=== PATIENT | male | born 1960 | race Caucasian/White ===

== ENCOUNTER → 2017-11-12 06:32 | Outpatient (CLI) | payer OTHER, SELFPAY ==
[2017-11-12 08:54] LABS: AST(SGOT) 22 U/L (15-37); Alanine Aminotransfer ALT/SGPT 25 U/L (16-61); Albumin, Serum 3.9 g/dL (3.2-5.0); Alkaline Phosphatase 108 U/L (45-117); Cholesterol 150 mg/dL (200); Globulin 3.8 g/dL (2.2-4.2); High Density Lipoprotein 51 mg/dL; Protein, Total 7.7 g/dL (6.4-8.2); Triglycerides 86 mg/dL; Very Low Density Lipoprotein 17 mg/dL (5-40)
== END ==
PROVIDERS: Family Provider Family Medicine; PCP Family Medicine; Visit Provider Internal Medicine Interventional Cardiology
DX: I25.10 Atherosclerotic heart disease of native coronary artery without angina pectoris (principal); E78.5 Hyperlipidemia, unspecified; Z72.0 Tobacco use
CPT/HCPCS: 36415; 80061; 80076

== ENCOUNTER → 2018-04-09 06:27 | Outpatient (CLI) | payer OTHER, SELFPAY ==
--- NOTE | 2018-04-09 06:42 | MRI_ITS ---
STUDY: MRI LUMBAR SPINE WITH AND WITHOUT CONTRAST REASON FOR EXAM: Male, 57 years old. Lower back pain TECHNIQUE: Standardized fat and water weighted pulse sequences were obtained in the sagittal and axial planes. 10 ml of Gadavist contrast material was administered for the contrast portion of the examination. # of Images: 178 COMPARISON: None FINDINGS: T12-L1: Normal endplates. Normal disc height, hydration and morphology. Normal bilateral facet joints. Normal central canal and bilateral lateral recesses. Normal bilateral intervertebral neural foramina. Normal lumbar lordosis. There is no substantial scoliosis. Normal conus medullaris that terminates at the L1-2: Endplate spondylosis. Decreased disc height and small circumferential disc bulge. Degenerative changes of the bilateral facet joints. Mild narrowing of the central canal and moderate narrowing of the bilateral intervertebral neural foramina. L2-3: Endplate spondylosis. Decreased disc height and small circumferential disc bulge. Degenerative changes of the bilateral facet joints. Mild narrowing of the central canal and moderate narrowing of the bilateral intervertebral neural foramina. L3-4: Endplate spondylosis. Decreased disc height and moderate circumferential disc bulge. Bilateral laminectomy Superimposed large midline and para midline disc herniation is probably extruded impinging. Degenerative changes of the bilateral facet joints. Severe narrowing of the bilateral intervertebral neural foramina. L4-5: Endplate spondylosis. Decreased disc height and moderate circumferential disc bulge. Bilateral laminectomy Degenerative changes of the bilateral facet joints. Severe narrowing of the bilateral intervertebral neural foramina. L5-S1: Endplate spondylosis. Decreased disc height and small circumferential disc bulge. Degenerative changes of the bilateral facet joints. Mild narrowing of the central canal and bilateral intervertebral neural foramina. Normal visualized sacral ala. Normal visualized paraspinous soft tissue structures. MRI/Spine Lumbar W/WO Contrast IMPRESSION: Multilevel degenerative changes, as described above. Electronically Signed: Iraida Holland MD at 12:11 EDT Tel , Service support ,
== END ==
PROVIDERS: Family Provider Family Medicine; PCP Family Medicine; Referring Provider Nurse Practitioner Acute Care; Visit Provider Nurse Practitioner Acute Care
DX: M48.061 Spinal stenosis, lumbar region without neurogenic claudication (principal)
CPT/HCPCS: 72158; A9585

== ENCOUNTER → 2018-04-22 09:24 | Outpatient (CLI) | payer OTHER, SELFPAY ==
--- NOTE | 2018-04-22 09:24 | COLBX_PTH ---
PATIENT: DARLING BENNETT LOC: GEN U#:[id number] AGE/SX: 64/M ROOM: RE04/22/[address]: Dr. Otoniel Patel MD : 1960 BED: DIS: SPEC #: [id number] RECD: 04/22/18 15:34 STATUS: BERNARD JESS #: [id number] SRIDEVI: 04/22/18 09:[address]: Otoniel Patel DEPT: SURGICAL PATHOLOGY RECD BY: Nathaly Clarke ENTERED: 04/23/18 11:35 SP TYPE: COLON BX OTHR DR: Dr. Hector Luevano MD [facility] Tissues: Sigmoid colon biopsy Procedures: Surgery Specimen Level IV HEADER OPERATION: Colonoscopy with biopsy PRE-OP DIAGNOSIS: Screening, family history TISSUE SUBMITTED: Biopsy polyp x2, distal sigmoid, rule out adenoma MICROSCOPIC DIAGNOSIS Distal sigmoid polyps x2, biopsy: Fragments of hyperplastic polyp. SJ:krista 11/5/18 MICROSCOPIC DESCRIPTION Slides are reviewed. GROSS DESCRIPTION Received in fixative is one container labeled with the patient's name and designated distal sigmoid polyp biopsy. The specimen consists of multiple irregular fragments of light ga soft tissue that in aggregate measure 0.5 x 0.3 x 0.1 cm. The specimen is totally submitted in one cassette. / AM:krista 04/23/18 TC:1 CPT: 43408
== END ==
PROVIDERS: Family Provider Family Medicine; PCP Family Medicine; Referring Provider Internal Medicine Gastroenterology; Visit Provider Internal Medicine Gastroenterology
DX: Z13.9 Encounter for screening, unspecified (principal); Z84.89 Family history of other specified conditions
CPT/HCPCS: 88305

== ENCOUNTER → 2018-12-02 06:13 | Outpatient (CLI) | payer OTHER, SELFPAY ==
[2018-12-02 07:54] LABS: AST(SGOT) 20 U/L (15-37); Alanine Aminotransfer ALT/SGPT 22 U/L (16-61); Albumin, Serum 3.8 g/dL (3.2-5.0); Alkaline Phosphatase 110 U/L (45-117); Anion Gap 3 (5-15); BUN 12 mg/dL (7-18); BUN/Creat Ratio 13.4 RATIO (10-20); Calcium,Total 9.2 mg/dL (8.5-10.1); Chloride 107 mmol/L (98-107); Cholesterol 155 mg/dL (200); Creatinine, Serum 0.89 mg/dL (0.70-1.30); EST Glomerular Filtration Rate 92 mL/min (>60); Est Glom Filt Rate - Afr Amer 111 mL/min (>60); Globulin 3.8 g/dL (2.2-4.2); Glucose 96 mg/dL (74-106); High Density Lipoprotein 57 mg/dL; PSA,Total- Diagnostic 1.27 ng/mL (0.0-4.0); Potassium 3.7 mmol/L (3.5-5.1); Protein, Total 7.6 g/dL (6.4-8.2); Sodium Level 137 mmol/L (136-145); Triglycerides 74 mg/dL; Very Low Density Lipoprotein 15 mg/dL (5-40)
[2018-12-03 11:14] LABS: Hep C Antibodies <0.1 s/co ratio (0.0-0.9)
== END ==
PROVIDERS: Family Provider Family Medicine; PCP Family Medicine; Referring Provider Family Medicine; Visit Provider Family Medicine
DX: I25.10 Atherosclerotic heart disease of native coronary artery without angina pectoris (principal); N40.0 Benign prostatic hyperplasia without lower urinary tract symptoms; Z11.59 Encounter for screening for other viral diseases
CPT/HCPCS: 36415; 80053; 80061; 84153; 86803

== ENCOUNTER 2019-03-07 16:04 | Emergency (ER) | payer OTHER, SELFPAY ==
[2019-03-07 16:05] VITALS: BP 126/63; PULSE 70; RESP 16; TEMP 36.7; O2SAT 95; BMI 29.2
--- NOTE | 2019-03-07 16:40 | ED.VISSUMM ---
- ER Visit Summary Date of Service: 03/07/19 Chief Complaint: [Scalp laceration] History of Present Illness: The patient is a 58 M [presents to the emergency department with a head injury and scalp laceration that occurred prior to arrival in the emergency department. Patient states that he stood up and hit his head on a roll bar of a skid feeder loader causing a laceration to the top of his head. He denies any loss of consciousness. He denies any neck pain. Patient is on Plavix for history of cardiac stent. Patient denies any significant headache. He said no vomiting. He denies any visual changes. He is unsure of his last tetanus shot.] Physical Examination: [HEENT-PERRLA, EOMI. Cranial nerves II through XII grossly intact. TMs clear. Mucous membranes moist. No adenopathy. Patient has a 4 cm laceration horizontal across the vertex of the head. No bony step-offs. Cardiovascular-regular rate and rhythm without murmur or ectopy Lungs-clear to auscultation, chest wall stable without crepitus or subcu emphysema Abdomen-normoactive bowel sounds, soft, nontender, no rebound or rigidity, no peritoneal signs. Extremities-intact ?4, normal range of motion, normal pulses, atraumatic] Test Results: [None indicated] Emergency Department Course and Treatment: [Laceration repair-wound sterilely draped and prepped. Wound cleansed with Shur-Clens and irrigated with copious saline. Using 1% lidocaine with epinephrine total of 3 cc used to anesthetize the area. The wound was inspected and the cut is barely through the dermis however does gape slightly. Wound cleansed with Shur-Clens and irrigated with copious saline. No foreign bodies noted within the wound. Using 4-0 nylon a total of 3 single interrupted sutures placed with good wound edge approximation. Patient tired procedure well.] Treatment Plan: [Patient to follow-up with primary care physician for suture removal in 10 days. Patient advised to return if worsening pain, fever, redness, swelling, purulent drainage, or conditions worsen anyway.] Disposition: [Discharged home in stable condition.] Impression: [Closed head injury Scalp laceration 4 cm-simple repair] This note was generated with [employer] software. It may contain incorrect words, spelling, and punctuation that were not noted in review of the chart prior to signing ED Disposition - Plan for ED Patient: Referrals: Hector Luevano MD [Primary Care Provider] -
--- NOTE | 2019-03-07 16:43 | ED.DEP ---
ED Disposition - Plan for ED Patient: Instructions: LACERATION, Scalp Referrals: Hector Luevano MD [Primary Care Provider] - 10 Day for suture removal
[2019-03-07] MEDS: Diphth,Pertuss(Acell),Tet Vac 0.5 ML Vial IM (16:54)
== END 2019-03-07 17:07 | disposition home or self-care (01) ==
LOC: ED 16:21
PROVIDERS: Emergency Provider Emergency Medicine; Family Provider Family Medicine; PCP Family Medicine
DX: S01.01XA Laceration without foreign body of scalp, initial encounter (principal); W22.8XXA Striking against or struck by other objects, initial encounter; Y93.9 Activity, unspecified; Y92.9 Unspecified place or not applicable; Y99.9 Unspecified external cause status; I25.10 Atherosclerotic heart disease of native coronary artery without angina pectoris; F17.290 Nicotine dependence, other tobacco product, uncomplicated; Z79.82 Long term (current) use of aspirin; Z79.02 Long term (current) use of antithrombotics/antiplatelets; Z79.899 Other long term (current) drug therapy; Z95.5 Presence of coronary angioplasty implant and graft
CPT/HCPCS: 12002; 90471; 90715; 99283

== ENCOUNTER → 2019-09-20 15:35 | Outpatient (CLI) | payer OTHER, SELFPAY ==
[2019-09-20 17:43] LABS: Absolute Lymphocyte Count 3.13 X10^3/uL (0.83-4.51); Absolute Neutrophil Count 4.6 X10^3/uL (2.0-7.7); Basophil# 0.02 X10^3/uL; Basophil% 0.2 % (0-1); Eosinophils% 1.2 % (0-5); Hematocrit 49.8 % (40-54); Hemoglobin 16.2 g/dL (13.0-16.5); Lymphocyte # 3.13 X10^3/ul (4.0); Lymphocyte % 36.4 % (19-41); Mean Corp Hgb Conc 32.5 g/dL (32-36); Mean Corpuscular Hgb 30.4 pg (27.0-32.0); Mean Corpuscular Volume 93.4 fL (80-94); Mean Platelet Vol. 9.2 fl (6.2-12.0); Monocyte# 0.71 X10^3/uL; Monocyte% 8.3 % (0-10); NRBC Flagged by Analyzer 0 % (0-5); Neutrophil # 4.63 X10^3/uL (2.7-7.7); Neutrophil % 53.8 % (47-70); Platelet Count 312 K/mm3 (150-450); RBC Distribution Width CV 13.8 % (11.6-14.6); RBC Distribution Width SD 47.8 fl (35.1-43.9); Red Blood Count 5.33 M/mm3 (4.6-6.2); White Blood Count 8.6 K/mm3 (4.4-11.0)
[2019-09-20 18:14] LABS: ALB/GLOB Ratio 1.1 RATIO (0.9-2.4); AST(SGOT) 20 U/L (15-37); Alanine Aminotransfer ALT/SGPT 23 U/L (16-61); Albumin, Serum 3.9 g/dL (3.2-5.0); Alkaline Phosphatase 96 U/L (45-117); Anion Gap 5 (5-15); BUN 12 mg/dL (7-18); BUN/Creat Ratio 12.9 RATIO (10-20); Calcium,Total 9.5 mg/dL (8.5-10.1); Chloride 109 mmol/L (98-107); Cholesterol 144 mg/dL (200); Creatinine, Serum 0.93 mg/dL (0.70-1.30); EST Glomerular Filtration Rate 88 mL/min (>60); Est Glom Filt Rate - Afr Amer 106 mL/min (>60); Globulin 3.6 g/dL (2.2-4.2); Glucose 93 mg/dL (74-106); High Density Lipoprotein 54 mg/dL; Potassium 3.9 mmol/L (3.5-5.1); Protein, Total 7.5 g/dL (6.4-8.2); Sodium Level 142 mmol/L (136-145); Triglycerides 97 mg/dL; Very Low Density Lipoprotein 19 mg/dL (5-40)
== END ==
PROVIDERS: PCP Family Medicine; Referring Provider Family Medicine; Visit Provider Family Medicine
DX: I25.10 Atherosclerotic heart disease of native coronary artery without angina pectoris (principal)
CPT/HCPCS: 36415; 80053; 80061; 85025

== ENCOUNTER → 2020-07-19 05:54 | Outpatient (CLI) | payer OTHER, SELFPAY ==
[2020-07-19 07:38] LABS: Cholesterol 164 mg/dL (200); High Density Lipoprotein 56 mg/dL; Triglycerides 64 mg/dL; Very Low Density Lipoprotein 13 mg/dL (5-40)
== END ==
PROVIDERS: PCP Family Medicine; Referring Provider Internal Medicine Interventional Cardiology; Visit Provider Internal Medicine Interventional Cardiology
DX: I25.10 Atherosclerotic heart disease of native coronary artery without angina pectoris (principal); E78.5 Hyperlipidemia, unspecified; Z72.0 Tobacco use
CPT/HCPCS: 36415; 80061

== ENCOUNTER 2020-10-13 00:08 | Emergency (ER) | payer OTHER, SELFPAY ==
[2020-10-13 00:12] VITALS: BP 142/77; PULSE 63; RESP 14; TEMP 36.1; O2SAT 98; BMI 26.9
--- NOTE | 2020-10-13 00:16 | EKG12_ITS ---
Test Reason : CP Blood Pressure : / mmHG Vent. Rate : 060 BPM Atrial Rate : 060 BPM P-R Int : 158 ms QRS Dur : 096 ms QT Int : 434 ms P-R-T Axes : 067 088 064 degrees QTc Int : 434 ms Normal sinus rhythm Normal ECG Confirmed by TAJ CASTAÑEDA, SAADIA ([id number]), sports editor PENNY MILES ([id number]) on 10/15/2020 9:52:32 AM Referred By: BOY Confirmed By:UVALDO VANG MD
--- NOTE | 2020-10-13 00:16 | RAD_ITS ---
STUDY: X-RAY CHEST REASON FOR EXAM: Male, 60 years old. chest pain TECHNIQUE: Single AP portable view of the chest. COMPARISON: 03/23/17 FINDINGS: The lungs are clear and expanded. There is no demonstrated pleural abnormality. Normal size heart. Normal mediastinum and luis carlos. Normal visualized pulmonary arteries. Normal visualized aortic arch and descending thoracic aorta. Normal visualized thoracic spine. Normal visualized ribs, clavicles, and shoulders. There is no demonstrated abnormality of the visualized soft tissue structures of the upper abdomen. RAD/Chest 1 View (Portable) IMPRESSION: Normal x-ray examination of the chest. Electronically Signed: Alan Mccurdy DO at 0:46 EDT Tel , Service support ,
--- NOTE | 2020-10-13 00:17 | ED.DCSUM_ITS ---
- ER Visit Summary Date of Service: 10/13/20 Chief Complaint: Chest pain History of Present Illness: The patient is a 60 M who presents with chest pain. It started 1 hour ago. It is a dull pressure of the start on the right side of his chest and now centered in the middle part of his chest. Nothing makes it better or worse. Denies nausea, diaphoresis or dyspnea. He did not take anything for this at home. He is on Plavix for history of coronary artery disease. His last testing was in 2015 when he did have 1 stent placed. 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 Physical Examination: Vital signs reviewed. HEENT exam unremarkable. Heart is regular rate and rhythm without murmurs. Lungs are clear to auscultation. Abdomen is soft and nontender. Extremities reveal no edema. Peripheral pulses are equal. Skin exam normal. Neurologic exam normal. Test Results: EKG is sinus rhythm with a rate of 60. No ST changes. Chest x- ray unremarkable. Labs are normal. Troponin normal. Repeat 3-hour troponin is also normal Emergency Department Course and Treatment: Patient received aspirin. His pain resolved while he was here in the emergency department. His heart score is 4. However, he does not want to be admitted to the hospital. I repeated a 3-hour troponin and is still negative. Patient was still symptom-free. Patient would like to be discharged home. He is going to call his cold storage worker today for a follow-up appointment. Treatment Plan: [] Disposition: Discharge Impression: Chest pain This note was generated with [employer] dictation software. It may contain incorrect words, spelling, and punctuation that were not noted in review of the chart prior to signing ED Disposition - Plan for ED Patient: Disposition: Home or Assisted Living Instructions: ED Chest Pain, Uncertain Cause Referrals: Hector Luevano MD [Primary Care Provider] -
[2020-10-13 00:34] LABS: Absolute Neutrophil Count 4.7 X10^3/uL (2.0-7.7); Basophil# 0.03 X10^3/uL; Basophil% 0.3 % (0-1); Eosinophil# 0.24 X10^3/uL; Eosinophils% 2.4 % (0-5); Hematocrit 48.1 % (40-54); Hemoglobin 15.5 g/dL (13.0-16.5); Lymphocyte % 40.9 % (19-41); Mean Corp Hgb Conc 32.2 g/dL (32-36); Mean Corpuscular Hgb 30.6 pg (27.0-32.0); Mean Corpuscular Volume 94.9 fL (80-94); Mean Platelet Vol. 9.1 fl (6.2-12.0); Monocyte# 0.96 X10^3/uL; Monocyte% 9.6 % (0-10); NRBC Flagged by Analyzer 0 % (0-5); Neutrophil # 4.67 X10^3/uL (2.7-7.7); Neutrophil % 46.5 % (47-70); Platelet Count 338 K/mm3 (150-450); RBC Distribution Width CV 13.7 % (11.6-14.6); RBC Distribution Width SD 47.8 fl (35.1-43.9); Red Blood Count 5.07 M/mm3 (4.6-6.2)
[2020-10-13 00:47] LABS: Anion Gap 5 (5-15); BUN 16 mg/dL (7-18); BUN/Creat Ratio 18.1 RATIO (10-20); Calcium,Total 9.4 mg/dL (8.5-10.1); Chloride 107 mmol/L (98-107); Creatinine, Serum 0.88 mg/dL (0.70-1.30); EST Glomerular Filtration Rate 93 mL/min (>60); Est Glom Filt Rate - Afr Amer 113 mL/min (>60); Estimated Creatinine Clearance 104.02 ml/min; Glucose 104 mg/dL (74-106); Potassium 3.9 mmol/L (3.5-5.1); Sodium Level 142 mmol/L (136-145)
[2020-10-13] MEDS: Aspirin 81 MG TAB.CHEW 324 MG PO (01:08)
[2020-10-13 01:09] VITALS: BP 145/73; PULSE 59; RESP 16; O2SAT 97
--- NOTE | 2020-10-13 01:09 | ED.RN ---
patient states he does not have cp now and does not want to take nitro at this time
[2020-10-13 01:40] VITALS: BP 131/70; PULSE 59; RESP 18; O2SAT 97
[2020-10-13 02:28] VITALS: BP 141/77; PULSE 58; RESP 16; O2SAT 98
[2020-10-13 03:02] VITALS: BP 139/73; PULSE 57; RESP 19; O2SAT 99
[2020-10-13 03:32] VITALS: BP 137/73; PULSE 57; RESP 12; O2SAT 98
== END 2020-10-13 03:33 | disposition home or self-care (01) ==
PROVIDERS: Emergency Provider Emergency Medicine; PCP Family Medicine
DX: R07.9 Chest pain, unspecified (principal); I25.10 Atherosclerotic heart disease of native coronary artery without angina pectoris; Z72.0 Tobacco use; Z79.02 Long term (current) use of antithrombotics/antiplatelets; Z79.899 Other long term (current) drug therapy; Z95.5 Presence of coronary angioplasty implant and graft
CPT/HCPCS: 71045; 80048; 84484; 85025; 93005; 99285; A4216

== ENCOUNTER → 2020-10-30 06:58 | Outpatient (CLI) | payer OTHER, SELFPAY ==
[2020-10-13 00:12] VITALS: BMI 26.9
[2020-10-30 09:07] LABS: AST(SGOT) 20 U/L (15-37); Alanine Aminotransfer ALT/SGPT 26 U/L (16-61); Albumin, Serum 3.5 g/dL (3.2-5.0); Alkaline Phosphatase 105 U/L (45-117); Bilirubin, Direct 0.21 mg/dL (0.00-0.30); Cholesterol 141 mg/dL (200); Globulin 3.6 g/dL (2.2-4.2); High Density Lipoprotein 66 mg/dL; Protein, Total 7.1 g/dL (6.4-8.2); Triglycerides 55 mg/dL; Very Low Density Lipoprotein 11 mg/dL (5-40)
== END ==
PROVIDERS: PCP Family Medicine
DX: I25.10 Atherosclerotic heart disease of native coronary artery without angina pectoris (principal); E78.5 Hyperlipidemia, unspecified
CPT/HCPCS: 36415; 80061; 80076

== ENCOUNTER → 2021-01-23 06:04 | Outpatient (CLI) | payer OTHER, SELFPAY ==
--- NOTE | 2021-01-23 10:03 | STRESSREP ---
Stress Test Report Date: 01-23-2021 Procedure: Exercise tolerance test/imaging study Indications: CAD; PCI Consent: Per the patient Procedure: The patient exercised on a Jose D protocol for 11-minute completing Stage III and 2 minutes of Stage IV achieving a peak heart rate of 125 bpm (79% predicted maximal heart rate) with a peak blood pressure 160/72 mmHg and a peak MET capacity of 13 METs. The baseline ECG demonstrated sinus bradycardia. The peak exercise ECG demonstrated somatic/motion artifact with no obvious ECG changes. There was a rare PAC/PVC during exercise and an isolated ventricular couplet during exercise. The functional capacity was considered good. There was no complaint of chest discomfort during exercise or recovery. The examination was discontinued secondary to dyspnea and leg discomfort. Impression: 1. Technically inadequate (percent predicted maximal heart rate less than 85%) exercise tolerance test 2. Peak exercise ECG with somatic/motion artifact with no obvious ECG change 3. There was a rare PAC/PVC during exercise and an isolated ventricular couplet during exercise 4. Nuclear images pending Myocardial perfusion imaging study: Technique: The patient was injected with 14.8 mCi of technetium 99m Cardiolite and subsequently rest SPECT Cardiolite nuclear imaging was obtained in the horizontal long, vertical long, and short axis views. The patient exercised on a Jose D protocol for 11-minute completing Stage III and 2 minutes of Stage IV achieving a peak heart rate of 125 bpm (79% predicted maximal heart rate) with a peak blood pressure 160/72 mmHg and a peak MET capacity of 13 METs. The patient was injected with 44.2 mCi of technetium 99m Cardiolite and subsequently stress SPECT Cardiolite nuclear imaging was obtained in the horizontal long, vertical long, and short axis views. A gated Cardiolite study at peak stress was obtained. Interpretation: Rest and stress SPECT Cardiolite nuclear imaging status post realignment, normalization, and attenuation correction, demonstrates demonstrate a small area of subtle diminished tracer uptake near the apical segments which appears to be more prominent at rest as opposed to stress. There is end systolic thickening and brightening. The gated Cardiolite study demonstrates myocardial thickening and inward wall motion. The reported LVEF is 69%. Impression: 1. Rest and stress SPECT Cardiolite nuclear imaging demonstrates a small area of subtle diminished tracer uptake near the apical segments which appears to be more prominent at rest as opposed to stress appearing compatible with shifting soft tissue attenuation/artifact and/or component of physiologic apical thinning with no myocardial perfusion changes considered diagnostic for associated stress-induced myocardial ischemia. 2. The gated Cardiolite study reports an LVEF of 69%. This note was generated with [employer] software. It may contain incorrect words, spelling, and punctuation that were not noted in checking the note before signing.
== END ==
PROVIDERS: PCP Family Medicine
DX: I25.10 Atherosclerotic heart disease of native coronary artery without angina pectoris (principal); E78.5 Hyperlipidemia, unspecified; Z72.0 Tobacco use
CPT/HCPCS: 78452; 93017; A9500; A4216

== ENCOUNTER 2021-07-27 07:39 | Outpatient (CLI) | payer BC, SELFPAY ==
[2021-07-27 08:30] LABS: Cholesterol 135 mg/dL (200); High Density Lipoprotein 59 mg/dL; PSA,Total - Annual Screen 1.59 ng/mL (0.00-4.00); Triglycerides 68 mg/dL; Very Low Density Lipoprotein 14 mg/dL (5-40)
== END 2021-07-27 23:59 | disposition home or self-care (01) ==
PROVIDERS: PCP Family Medicine; Visit Provider Internal Medicine Interventional Cardiology
DX: E78.5 Hyperlipidemia, unspecified (principal); I25.10 Atherosclerotic heart disease of native coronary artery without angina pectoris; Z72.0 Tobacco use
CPT/HCPCS: 36415; 80061; 84153; G0103

== ENCOUNTER 2022-04-30 23:22 | Emergency (ER) | payer BC, SELFPAY ==
[2022-04-30 23:23] VITALS: BP 156/102; PULSE 71; RESP 23; TEMP 36.8; O2SAT 100; BMI 30.8
--- NOTE | 2022-04-30 23:27 | EKG12_ITS ---
Test Reason : cp Blood Pressure : / mmHG Vent. Rate : 062 BPM Atrial Rate : 062 BPM P-R Int : 160 ms QRS Dur : 102 ms QT Int : 458 ms P-R-T Axes : 065 073 066 degrees QTc Int : 464 ms Normal sinus rhythm Normal ECG Confirmed by TAJ CASTAÑEDA, SAADIA ([id number]), digital editor PENNY MILES ([id number]) on 05/06/2022 9:33:16 A M Referred By: Iggy Confirmed By:UVALDO VANG MD
--- NOTE | 2022-04-30 23:33 | RAD_ITS ---
STUDY: X-RAY CHEST REASON FOR EXAM: Male, 61 years old. chest pain TECHNIQUE: Single AP portable view of the chest. COMPARISON: 10/13/2020. FINDINGS: The lungs are clear and expanded. There is no demonstrated pleural abnormality. Normal size heart. Normal mediastinum and luis carlos. Normal visualized pulmonary arteries. Normal visualized aortic arch and descending thoracic aorta. There are diffuse degenerative changes of the visualized thoracic spine. There is degenerative osteoarthritis of the bilateral shoulders. There is no demonstrated abnormality of the visualized soft tissue structures of the upper abdomen. RAD/Chest 1 View (Portable) IMPRESSION: No acute cardiopulmonary disease. Electronically Signed: Shaniqua Mims MD at 0:23 EST ,
[2022-04-30 23:36] LABS: Absolute Lymphocyte Count 3.87 X10^3/uL (0.83-4.51); Absolute Neutrophil Count 5.2 X10^3/uL (2.0-7.7); Basophil# 0.04 X10^3/uL; Basophil% 0.4 % (0-1); Eosinophil# 0.15 X10^3/uL; Eosinophils% 1.5 % (0-5); Hematocrit 44.5 % (40-54); Hemoglobin 15.1 g/dL (13.0-16.5); Lymphocyte # 3.87 X10^3/ul (0.83-4.51); Lymphocyte % 38.1 % (19-41); Mean Corp Hgb Conc 33.9 g/dL (32-36); Mean Corpuscular Hgb 30.9 pg (27.0-32.0); Mean Platelet Vol. 8.8 fl (6.2-12.0); Monocyte% 8.8 % (0-10); NRBC Flagged by Analyzer 0 % (0-5); Neutrophil % 51.1 % (47-70); Platelet Count 318 K/mm3 (150-450); RBC Distribution Width CV 12.7 % (11.6-14.6); RBC Distribution Width SD 41.8 fl (35.1-43.9); Red Blood Count 4.89 M/mm3 (4.6-6.2); White Blood Count 10.2 K/mm3 (4.4-11.0)
[2022-04-30 23:55] LABS: Anion Gap 4 (5-15); BUN 17 mg/dL (7-18); BUN/Creat Ratio 17.7 RATIO (10-20); Calcium,Total 9.2 mg/dL (8.5-10.1); Chloride 107 mmol/L (98-107); Creatinine, Serum 0.96 mg/dL (0.70-1.30); EST Glomerular Filtration Rate 84 mL/min (>60); Est Glom Filt Rate - Afr Amer 101 mL/min (>60); Estimated Creatinine Clearance 94.13 ml/min; Glucose 118 mg/dL (74-106); Potassium 3.6 mmol/L (3.5-5.1); Sodium Level 139 mmol/L (136-145); Troponin-I HS (w/2H Reflex) 10 pg/mL (3.0-78.0)
--- NOTE | 2022-05-01 00:08 | ED.VIS.CHEST ---
HPI History of Present Illness Chief Complaint: Chest Pain Narrative Narrative: 60-year-old male with history of CAD and cardiac stents presenting with chest pain. He states it started about 1030. He had eaten chicken nuggets and tater tots for dinner. He stated the chest pain started shortly after and radiated across his entire chest. He denies being lightheaded, dizzy, nauseous. He states that this type of food would not of usually caused him any symptoms. He states the chest pain lasted for about 45 minutes or so. He took 4 baby aspirin at home. Patient is on daily aspirin and Plavix. No history of DVT/PE. No fever, chills, cough. PFSH PFSH Home Medications clopidogrel 75 mg tablet 75 mg PO DAILY 02/26/17 [History Last Taken Unknown] multivitamin (Daily Multiple tablet) 1 ea PO DAILY 02/26/17 [History Last Taken Unknown] saw palmetto 160 mg capsule 160 mg PO DAILY 02/26/17 [History Last Taken Unknown] nitroglycerin 0.4 mg sublingual tablet 0.4 mg sublingual Q5M PRN CHEST PAIN 10/13/20 [History Last Taken Unknown] rosuvastatin 20 mg tablet 20 mg PO QHS 10/13/20 [History Last Taken Unknown] loratadine 10 mg tablet (Claritin) 10 mg PO DAILY 05/01/22 [History Last Taken Unknown] Allergy/AdvReac Type Severity Reaction Status Date / Time No Known Allergies Allergy Verified 10/13/20 00:11 Surgical History History of heart artery stent Social History Smoking Status: Former smoker ROS ROS ED Constitutional Constitutional ED: Denies chills or fever(s) Eyes Eyes: Denies blurry vision or change in vision ENT ENT ED: Denies rhinorrhea or sore throat Cardiovascular Cardiovascular: Reports chest pain Respiratory/Chest Respiratory/Chest: Denies cough or dyspnea Gastrointestinal Gastrointestinal: Denies abdominal pain or constipation Genitourinary Genitourinary ED: Denies dysuria or hematuria Musculoskeletal Musculoskeletal: Denies arthralgias or back pain Integumentary Denies abscess or Abrasions Neurologic Neurologic: Denies headache(s) or paresthesias Psychiatric Psychiatric: Denies anxiety or depression EXAM Physical Exam Const Vital Signs: 04/30/22 23:23 04/30/22 23:25 04/30/22 23:27 Temperature 98.2 F Temperature Source Temporal Pulse Rate 71 Respiratory Rate 23 H Respiratory Effort Normal Blood Pressure 156/102 H Blood Pressure Mean 120 Pulse Ox 100 Oxygen Delivery Method Room Air Room Air 05/01/22 00:28 05/01/22 01:00 05/01/22 02:00 Temperature Temperature Source Pulse Rate 59 L 59 L 58 L Respiratory Rate 16 15 13 Respiratory Effort Blood Pressure 126/74 H 133/72 H 144/79 H Blood Pressure Mean 91 92 100 Pulse Ox 96 98 98 Oxygen Delivery Method Room Air Room Air Room Air Positive well nourished General Appearance ED: NAD; Negative for pallor HEENT Reports moist mucous membranes normocephalic and atraumatic Eyes PERRL and EOMs intact bilaterally Chest Wall inspection of chest normal and palpation of chest normal Resp normal respiratory effort and clear to auscultation bilaterally Auscultation: Negative for rales, rhonchi or wheezes Cardio regular rate and regular rhythm GI normal to inspection, nondistended, normoactive bowel sounds Extremity normal to inspection Neuro oriented x3 and CN's II-XII intact bilaterally Sensorium / Orientation: awake and alert Psych mental status grossly normal Skin no rashes or lesions noted General Skin Exam: Negative for jaundice or pallor Heart Score History: Moderately Suspicious ECG: Normal Age: >45 - <65 years Troponin: >/=3 x Normal Limit Score: 4 MDM MDM MDM Narrative Medical decision making narrative: Patient presenting with resolved chest pain. Last about 45 minutes. He did not have any lightheadedness, dizziness, nauseous and he states he was not diaphoretic. He took 4 baby aspirin at home. He reports a cardiac history. EKG obtained on arrival shows a sinus rhythm of 62 bpm without sign of ischemic change or dysrhythmia on my interpretation. Chest x-ray on my interpretation shows no acute cardiopulmonary process and radiologist interprets this and agrees. CBC and BMP are unremarkable. His first high-sensitivity troponin is 10. Will obtain a delta troponin. Patient currently pain-free and does not require any medications for pain or nausea. Patient reevaluated at 1:20 AM. He still doing well. He has no return of chest pain. Discussed his normal lab work and imaging as well as normal EKG. Discussed the need for a delta troponin. He is amenable to this. Delta troponin is 11. No significant interval change. I have a low clinical suspicion for PE given his heart rate of 58, respirate of 13, 98% on room air. He is not having sharp pleuritic pain or pain with deep inspiration either. No history of DVT/PE. No risk factors for it. At this point I feel the patient is stable for discharge home. He is counseled to follow-up with cardiology. Return precautions were discussed. Impression: 1. Chest pain Lab Data Attestation: I reviewed the patient's lab results. Labs: Laboratory Results - last 24 hr 04/30/22 04/30/22 05/01/22 23:30 23:30 01:40 WBC 10.2 RBC 4.89 Hgb 15.1 Hct 44.5 MCV 91.0 MCH 30.9 MCHC 33.9 RDW Std Deviation 41.8 RDW Coeff of Syeda 12.7 Plt Count 318 MPV 8.8 Immature Gran % (Auto) 0.100 Neut % (Auto) 51.1 Lymph % (Auto) 38.1 [place]inole % (Auto) 8.8 Eos % (Auto) 1.5 Baso % (Auto) 0.4 Absolute Neuts (auto) 5.2 Absolute Lymphs (auto) 3.87 Nucleated RBC % 0 Sodium 139 Potassium 3.6 Chloride 107 Carbon Dioxide 28.0 Anion Gap 4 L BUN 17 Creatinine 0.96 Estim Creat Clear Calc 94.13 Est GFR (MDRD) Af Amer 101 Est GFR (MDRD) Non-Af 84 BUN/Creatinine Ratio 17.7 Glucose 118 H Calcium 9.2 Troponin I High Sens 10 11 Radiography Diagnostic Testing: Clinical Impression(s) from Imaging Studies Chest X-Ray 04/30/22 23:33 IMPRESSION: No acute cardiopulmonary disease. Electronically Signed: Shaniqua Mims MD at 0:23 EST , Discharge Plan Triage Chief Complaint: Chest Pain ED Provider: Braulio Garcia Dx/Rx/DC Orders Instructions: ED Chest Pain, Uncertain Cause Prescriptions: No Action multivitamin [Daily Multiple] 1 EACH tablet 1 ea PO DAILY clopidogrel 75 MG tablet 75 mg PO DAILY saw palmetto 160 MG capsule 160 mg PO DAILY nitroglycerin 0.4 MG tablet, sublingual 0.4 mg SL Q5M PRN (Reason: CHEST PAIN) rosuvastatin 20 MG tablet 20 mg PO QHS loratadine [Claritin] 10 mg Tablet 10 mg PO DAILY Primary Care Provider: Hector Luevano Referrals: Hector Luevano MD [Primary Care Provider] - Disposition Disposition: Home, Self Care
[2022-05-01 00:28] VITALS: BP 126/74; PULSE 59; RESP 16; O2SAT 96
[2022-05-01 01:00] VITALS: BP 133/72; PULSE 59; RESP 15; O2SAT 98
[2022-05-01 01:34] LABS: Reflex Troponin-HS? (from REC) Y
[2022-05-01 02:00] VITALS: BP 144/79; PULSE 58; RESP 13; O2SAT 98
[2022-05-01 02:06] LABS: Troponin-I HS 11 pg/mL (3.0-78.0)
[2022-05-01 02:15] VITALS: BP 144/79; PULSE 54; RESP 16; O2SAT 95
== END 2022-05-01 02:15 | disposition home or self-care (01) ==
PROVIDERS: Emergency Provider Student in an Organized Health Care Education/Training Program; PCP Family Medicine; Visit Provider Student in an Organized Health Care Education/Training Program
DX: R07.9 Chest pain, unspecified (principal); I25.10 Atherosclerotic heart disease of native coronary artery without angina pectoris; Z79.02 Long term (current) use of antithrombotics/antiplatelets; Z79.82 Long term (current) use of aspirin; Z79.899 Other long term (current) drug therapy; Z87.891 Personal history of nicotine dependence; Z95.5 Presence of coronary angioplasty implant and graft
CPT/HCPCS: 71045; 80048; 84484; 85025; 93005; 99284; A4216

== ENCOUNTER → 2022-10-13 | Outpatient (CLI) | payer BC, SELFPAY ==
[2022-10-13 08:05] LABS: Cholesterol 142 mg/dL (200); High Density Lipoprotein 60 mg/dL; Thyroid Stim Hormone (TSH) 1.49 uIU/mL (0.358-3.74); Triglycerides 69 mg/dL; Very Low Density Lipoprotein 14 mg/dL (5-40)
== END | disposition home or self-care (01) ==
PROVIDERS: PCP Family Medicine
DX: I25.10 Atherosclerotic heart disease of native coronary artery without angina pectoris (principal); E78.5 Hyperlipidemia, unspecified; I10 Essential (primary) hypertension; Z72.0 Tobacco use
CPT/HCPCS: 36415; 80061; 84443

== ENCOUNTER 2023-05-18 23:44 | Emergency (ER) | payer BC, SELFPAY ==
--- NOTE | 2023-05-18 | RAD_ITS ---
INDICATION: chest pain EXAMINATION/TECHNIQUE: X-RAY - XR Chest 1 View COMPARISON: 04/30/2022. FINDINGS: LINES/DEVICES: None. LUNGS: No consolidation or evidence of an effusion. No evidence of edema or a pneumothorax. MEDIASTINUM AND CARDIOVASCULAR STRUCTURES: Cardiac silhouette is normal in size and contour. Mediastinum is unremarkable. BONES AND SOFT TISSUES: No acute abnormality. RAD/Chest 1 View (Portable) IMPRESSION: No evidence of acute cardiopulmonary disease. Electronically Signed: Naldo Guajardo DO at 0:35 EST ,
[2023-05-18 23:45] VITALS: BP 154/69; PULSE 58; RESP 19; TEMP 36.3; O2SAT 99; BMI 31.4
[2023-05-18 23:51] VITALS: O2SAT 99
--- NOTE | 2023-05-18 23:51 | EKG12_ITS ---
Test Reason : CP Blood Pressure : / mmHG Vent. Rate : 058 BPM Atrial Rate : 058 BPM P-R Int : 168 ms QRS Dur : 090 ms QT Int : 462 ms P-R-T Axes : 059 061 066 degrees QTc Int : 453 ms Sinus bradycardia Possible Left atrial enlargement Borderline ECG Confirmed by EMERY CASTAÑEDA, LANDY ([id number]), editorial manager PENNY MILES ([id number]) on 05/20/2023 11:02:03 AM Referred By: MARGIE Confirmed By:LANDY LAND MD
--- NOTE | 2023-05-18 23:52 | ED.VIS.CHEST ---
HPI History of Present Illness Chief Complaint: Chest Pain Informant: patient Onset/Context/Timing Onset: Today Narrative Narrative: Patient presents secondary to chest pain. He states about 11 PM this evening he developed pain while lying down and trying to go to sleep. He describes it as a sharp pressure the left chest into his back and a little bit up into his jaw. He did take 4 baby aspirin and 1 sublingual nitro. He does report mild improvement in the pain with the nitro. He does have history of cardiac stent in 2016. His last stress test was 2 years ago and unremarkable at that time. He states he has not been having difficulty keeping up with his normal activities recently. [facility] Medical History (Updated 05/19/23 @ 02:[address] Hannah Patel MD) Coronary artery disease High cholesterol Home Medications clopidogrel 75 mg tablet 75 mg PO DAILY 02/26/17 [History Last Taken Unknown] multivitamin (Daily Multiple tablet) 1 ea PO DAILY 02/26/17 [History Last Taken Unknown] saw palmetto 160 mg capsule 160 mg PO DAILY 02/26/17 [History Last Taken Unknown] nitroglycerin 0.4 mg sublingual tablet 0.4 mg sublingual Q5M PRN CHEST PAIN 10/13/20 [History Last Taken Unknown] rosuvastatin 20 mg tablet 20 mg PO QHS 10/13/20 [History Last Taken Unknown] loratadine 10 mg tablet (Claritin) 10 mg PO DAILY 05/01/22 [History Last Taken Unknown] Allergy/AdvReac Type Severity Reaction Status Date / Time No Known Allergies Allergy Verified 10/13/20 00:11 Surgical History History of heart artery stent Social History Smoking Status: Former smoker ROS ROS ED Constitutional Constitutional ED: Denies chills or fever(s) Eyes Eyes: Denies change in vision or discharge from eye(s) ENT ENT ED: Denies discharge from eye(s), rhinorrhea or sore throat Cardiovascular Cardiovascular: Reports chest pain; Denies palpitations Respiratory/Chest Respiratory/Chest: Denies cough or dyspnea Gastrointestinal Gastrointestinal: Denies abdominal pain, nausea or vomiting Musculoskeletal Musculoskeletal: Denies back pain or extremity pain Integumentary Denies Abrasions or rash Neurologic Neurologic: Denies headache(s) or weakness Psychiatric Psychiatric: Denies anxiety or depression Allergic/Immunologic Allergic/Immunologic ED: Denies lip swelling or urticaria EXAM Physical Exam Const Vital Signs: 05/18/23 23:45 05/18/23 23:51 05/19/23 01:28 Temperature 97.4 F L Temperature Source Temporal Pulse Rate 58 L 52 L Respiratory Rate 19 H 18 Blood Pressure 154/69 H 92/66 Blood Pressure Mean 97 74 Pulse Ox 99 99 96 Oxygen Delivery Method Room Air Room Air Room Air 05/19/23 02:44 Temperature Temperature Source Pulse Rate 65 Respiratory Rate 18 Blood Pressure 122/71 H Blood Pressure Mean 88 Pulse Ox 96 Oxygen Delivery Method Positive well nourished and well developed General Appearance ED: well developed HEENT Reports moist mucous membranes Eyes EOMs intact bilaterally Chest Wall inspection of chest normal and palpation of chest normal Resp normal respiratory effort and clear to auscultation bilaterally Cardio regular rhythm Rate: bradycardia GI normal to inspection, nondistended, normoactive bowel sounds Extremity normal to inspection Neuro oriented x3 and no sensory deficits noted Motor Exam: strength 5/5 throughout Psych mental status grossly normal Skin no rashes or lesions noted MDM MDM MDM Narrative Medical decision making narrative: Patient placed on monitoring analyst. IV line established. EKG obtained to evaluate for cardiac arrhythmia/ischemia. Labwork obtained to evaluate for leukocytosis, anemia, and electrolyte derangement. Chest x-ray obtained to evaluate for acute lung pathology, cardiac size, or mediastinal abnormality. Because patient did have some improvement with sublingual nitro at home he was given sublingual nitro here. History & Record Review Discussion w/independent historian: Patient and Significant other Additional record(s) reviewed:: Prior outpatient record, Prior ED visit and Prior labs Lab Data Attestation: I reviewed the patient's lab results. Labs: Laboratory Results - last 24 hr 05/18/23 05/19/23 23:50 02:00 WBC 10.1 RBC 4.93 Hgb 14.5 Hct 45.4 MCV 92.1 MCH 29.4 MCHC 31.9 L RDW Std Deviation 45.8 H RDW Coeff of Syeda 13.2 Plt Count 333 MPV 8.9 Immature Gran % (Auto) 0.300 Neut % (Auto) 50.4 Lymph % (Auto) 38.8 Lake % (Auto) 8.7 Eos % (Auto) 1.5 Baso % (Auto) 0.3 Absolute Neuts (auto) 5.1 Absolute Lymphs (auto) 3.92 Nucleated RBC % 0 Sodium 139 Potassium 3.6 Chloride 106 Carbon Dioxide 30.0 Anion Gap 3 L BUN 20 H Creatinine 0.98 Estim Creat Clear Calc 91.01 Est GFR (MDRD) Af Amer 99 Est GFR (MDRD) Non-Af 82 BUN/Creatinine Ratio 20.5 H Glucose 103 Calcium 9.3 Troponin I High Sens 9 10 Radiography Chest X-Ray - ED: 1 View, Read by ED Physician, Heart, Lungs and Mediastinum Diagnostic Testing: Clinical Impression(s) from Imaging Studies Chest X-Ray 05/18/23 00:00 IMPRESSION: No evidence of acute cardiopulmonary disease. Electronically Signed: Naldo Guajardo DO at 0:35 EST , EKG Initial EKG: Interpretation: Sinus Bradycardia (Sinus bradycardia 58 bpm. No acute ischemia.) Treatment and Re-Evaluation :: CBC was normal white count 10.1 with a hemoglobin of 14.5. Chemistry studies unremarkable. Initial troponin is 9 with a 2-hour repeat of 10. Patient was ordered nitro here but states his pain was very minimal and did not feel that he needed any additional nitro. He has had no evidence of arrhythmias on monitoring analyst during his stay. He is comfortable with discharge to home and close follow-up. He has an appointment with his risk management analyst on the . He was given instructions to return to the ER for any concerning symptoms. He voices understanding and agreement. Discharge Plan Triage Chief Complaint: Chest Pain ED Provider: Hannah Patel Dx/Rx/DC Orders Clinical Impression: Chest pain Instructions: ED Chest Pain, Uncertain Cause Prescriptions: No Action multivitamin [Daily Multiple] 1 EACH tablet 1 ea PO DAILY clopidogrel 75 MG tablet 75 mg PO DAILY saw palmetto 160 MG capsule 160 mg PO DAILY nitroglycerin 0.4 MG tablet, sublingual 0.4 mg SL Q5M PRN (Reason: CHEST PAIN) rosuvastatin 20 MG tablet 20 mg PO QHS loratadine [Claritin] 10 mg Tablet 10 mg PO DAILY Primary Care Provider: Hector Luevano Referrals: Wali Madera MD [Med Staff - Active Staff] - Keep Timothy appointment Hector Luevano MD [Primary Care Provider] - Disposition Disposition: Home, Self Care Discharge Date/Time: 05/19/23 02:46
[2023-05-19] LABS: Absolute Lymphocyte Count 3.92 X10^3/uL (0.83-4.51); Absolute Neutrophil Count 5.1 X10^3/uL (2.0-7.7); Basophil# 0.03 X10^3/uL; Basophil% 0.3 % (0-1); Eosinophil# 0.15 X10^3/uL; Eosinophils% 1.5 % (0-5); Hematocrit 45.4 % (40-54); Hemoglobin 14.5 g/dL (13.0-16.5); Lymphocyte # 3.92 X10^3/ul (0.83-4.51); Lymphocyte % 38.8 % (19-41); Mean Corp Hgb Conc 31.9 g/dL (32-36); Mean Corpuscular Hgb 29.4 pg (27.0-32.0); Mean Corpuscular Volume 92.1 fL (80-94); Mean Platelet Vol. 8.9 fl (6.2-12.0); Monocyte# 0.88 X10^3/uL; Monocyte% 8.7 % (0-10); NRBC Flagged by Analyzer 0 % (0-5); Neutrophil % 50.4 % (47-70); Platelet Count 333 K/mm3 (150-450); RBC Distribution Width CV 13.2 % (11.6-14.6); RBC Distribution Width SD 45.8 fl (35.1-43.9); Red Blood Count 4.93 M/mm3 (4.6-6.2); White Blood Count 10.1 K/mm3 (4.4-11.0)
[2023-05-19 00:18] LABS: Anion Gap 3 (5-15); BUN 20 mg/dL (7-18); BUN/Creat Ratio 20.5 RATIO (10-20); Calcium,Total 9.3 mg/dL (8.5-10.1); Chloride 106 mmol/L (98-107); Creatinine, Serum 0.98 mg/dL (0.70-1.30); EST Glomerular Filtration Rate 82 mL/min (>60); Est Glom Filt Rate - Afr Amer 99 mL/min (>60); Estimated Creatinine Clearance 91.01 ml/min; Glucose 103 mg/dL (74-106); Potassium 3.6 mmol/L (3.5-5.1); Sodium Level 139 mmol/L (136-145); Troponin-I HS (w/2H Reflex) 9 pg/mL (3.0-78.0)
[2023-05-19 01:28] VITALS: BP 92/66; PULSE 52; RESP 18; O2SAT 96
[2023-05-19 01:56] LABS: Reflex Troponin-HS? (from REC) Y
[2023-05-19 02:26] LABS: Troponin-I HS 10 pg/mL (3.0-78.0)
[2023-05-19 02:44] VITALS: BP 122/71; PULSE 65; RESP 18; O2SAT 96
== END 2023-05-19 02:46 | disposition home or self-care (01) ==
PROVIDERS: Emergency Provider Emergency Medicine; PCP Family Medicine; Visit Provider Emergency Medicine
DX: R07.9 Chest pain, unspecified (principal); E78.00 Pure hypercholesterolemia, unspecified; I25.10 Atherosclerotic heart disease of native coronary artery without angina pectoris; Z79.02 Long term (current) use of antithrombotics/antiplatelets; Z79.899 Other long term (current) drug therapy; Z87.891 Personal history of nicotine dependence; Z95.5 Presence of coronary angioplasty implant and graft
CPT/HCPCS: 71045; 80048; 84484; 85025; 93005; 99283; A4216

== ENCOUNTER → 2024-03-15 | Outpatient (CLI) | payer MEDICARE, OTHER, SELFPAY ==
[2024-03-15 07:04] LABS: Absolute Lymphocyte Count 2.59 X10^3/uL (0.83-4.51); Absolute Neutrophil Count 3.8 X10^3/uL (2.0-7.7); Basophil# 0.03 X10^3/uL; Basophil% 0.4 % (0-1); Eosinophils% 2.8 % (0-5); Hematocrit 46.1 % (40-54); Hemoglobin 15.1 g/dL (13.0-16.5); Lymphocyte # 2.59 X10^3/ul (0.83-4.51); Lymphocyte % 35.6 % (19-41); Mean Corp Hgb Conc 32.8 g/dL (32-36); Mean Corpuscular Hgb 29.8 pg (27.0-32.0); Mean Corpuscular Volume 91.1 fL (80-94); Mean Platelet Vol. 9.1 fl (6.2-12.0); Monocyte# 0.66 X10^3/uL; Monocyte% 9.1 % (0-10); NRBC Flagged by Analyzer 0 % (0-5); Neutrophil # 3.77 X10^3/uL (2.7-7.7); Neutrophil % 51.8 % (47-70); POSITIVE MORPHOLOGY YES; Platelet Count 295 K/mm3 (150-450); RBC Distribution Width CV 13.1 % (11.6-14.6); RBC Distribution Width SD 43.8 fl (35.1-43.9); Red Blood Count 5.06 M/mm3 (4.6-6.2); White Blood Count 7.3 K/mm3 (4.4-11.0)
[2024-03-15 07:19] LABS: Differential Indicated SCAN CRITERIA MET
[2024-03-15 07:58] LABS: ALB/GLOB Ratio 1.1 RATIO (0.9-2.4); AST(SGOT) 25 U/L (15-37); Alanine Aminotransfer ALT/SGPT 25 U/L (16-61); Albumin, Serum 3.7 g/dL (3.2-5.0); Alkaline Phosphatase 111 U/L (45-117); Anion Gap 4 (5-15); BUN 12 mg/dL (7-18); BUN/Creat Ratio 13.1 RATIO (10-20); Calcium,Total 9.4 mg/dL (8.5-10.1); Chloride 108 mmol/L (98-107); Cholesterol 133 mg/dL (200); Creatinine, Serum 0.91 mg/dL (0.70-1.30); EST Glomerular Filtration Rate 88 mL/min (>60); Est Glom Filt Rate - Afr Amer 107 mL/min (>60); Globulin 3.5 g/dL (2.2-4.2); Glucose 96 mg/dL (74-106); High Density Lipoprotein 61 mg/dL; PSA,Total- Diagnostic 1.95 ng/mL (0.0-4.0); Potassium 3.6 mmol/L (3.5-5.1); Protein, Total 7.2 g/dL (6.4-8.2); Sodium Level 139 mmol/L (136-145); Triglycerides 71 mg/dL; Very Low Density Lipoprotein 14 mg/dL (5-40)
== END | disposition home or self-care (01) ==
PROVIDERS: PCP Family Medicine; Referring Provider Family Medicine; Visit Provider Family Medicine
DX: I25.10 Atherosclerotic heart disease of native coronary artery without angina pectoris (principal); N40.0 Benign prostatic hyperplasia without lower urinary tract symptoms
CPT/HCPCS: 36415; 80053; 80061; 84153; 85025

== ENCOUNTER → 2024-06-29 | Outpatient (CLI) | payer MEDICARE, OTHER, SELFPAY ==
--- NOTE | 2024-06-29 07:42 | AAAS_ITS ---
Reason For Study: CAD in [place] Artery Aorta Measurements Aorta Doppler Measurements Proximal aorta measures2.31 x 2.15cm. in cross- Peak systolic flow velocities within the proximal sectional axis. aorta measure 46.9 cm/sec. Proximal aorta measures2.56cm. in longitudinal Peak systolic flow velocities within the mid aorta axis. measure 72.3 cm/sec. Mid aorta measures1.87 x 1.92cm. in cross- Peak systolic flow velocities within the distal sectional axis. aorta measure 75.9 cm/sec. Mid aorta measures1.94cm. in longitudinal axis. Distal aorta measures1.95 x 1.94cm. in cross- sectional axis. Distal aorta measures1.96cm. in longitudinal axis. Left Iliac Artery Left iliac artery measures 1.19 x 1.14 cm. in the cross-sectional axis. Left iliac artery measures 1.22 cm. in the longitudinal axis. Peak systolic velocity in the left iliac artery measures 111.9 cm/sec. Right Iliac Artery Right iliac artery measures 1.01 x 1.03 cm. in the cross-sectional axis. Right iliac artery measures 1.15 cm. in the longitudinal axis. VL/AAA Screening Interpretation Summary The dimensions of the intra-abdominal aorta appear normal, without evidence of aneurysmal dilatation. The iliac arteries also appear normal in caliber bilaterally. The i ntra-abdominal aorta and iliac arteries appear patent, demonstrating normal, pulsatile arterial flow and normal peak systolic velocities. Ordering Physician: Alberto Germain Referring Physician: Hector Luevano MD Performed By: Naveed Dominguez RVT
== END | disposition home or self-care (01) ==
LOC: CVS 07:38
PROVIDERS: PCP Family Medicine; Referring Provider Internal Medicine Interventional Cardiology; Visit Provider Internal Medicine Interventional Cardiology
DX: I25.10 Atherosclerotic heart disease of native coronary artery without angina pectoris (principal)
CPT/HCPCS: 76706

== ENCOUNTER 2025-04-23 14:47 | Emergency (ER) | payer MEDICARE, OTHER, SELFPAY ==
[2025-04-23 14:48] VITALS: BP 130/70; PULSE 57; RESP 16; TEMP 36.1; O2SAT 99
--- NOTE | 2025-04-23 14:50 | RAD_ITS ---
PROCEDURE: RAD/Ankle min 3 Views
--- NOTE | 2025-04-23 16:42 | ED.VIS.FALL ---
HPI HPI - Fall History of Present Illness Chief Complaint: Fall Detail of Chief Complaint: Injury of right heel. Informant: patient and spouse/S.O. Occured/Mechanism Occurred: Today Narrative: Slipped off a ladder fell about 5 feet injuring his right heel. 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 History of CAD with stent on Plavix. Was on a stepladder fell landed awkwardly on his right heel. Also hit his left del cid. Did not hit his head no LOC. No headache or neck pain. No back or chest pain. Occurred 1 to 2 hours ago. No prior ankle or foot history Prior similar symptoms: No Recent Illness/Hospitalization: No PFSH PFSH Medical History High cholesterol Coronary artery disease Medical History no medical history Home Medications ?Medication ?Instructions ?Recorded ?Last Taken ?Type clopidogrel 75 mg tablet 75 mg PO DAILY 02/26/17 Unknown History multivitamin (Daily Multiple 1 ea PO DAILY 02/26/17 Unknown History tablet) saw palmetto 160 mg capsule 160 mg PO DAILY 02/26/17 Unknown History nitroglycerin 0.4 mg sublingual 0.4 mg sublingual Q5M PRN CHEST 10/13/20 Unknown History tablet PAIN rosuvastatin 20 mg tablet 20 mg PO QHS 10/13/20 Unknown History loratadine 10 mg tablet (Claritin) 10 mg PO DAILY 05/01/22 Unknown History hydrocodone-acetaminophen 5-325mg 1 tab PO Q4H PRN PRN Pain 5 days 04/23/25 Unknown Rx 5mg-325mg #20 TABLETS Allergy/AdvReac Type Severity Reaction Status Date / Time No Known Allergies Allergy Verified 04/23/25 14:47 Family History no significant family his Surgical History History of heart artery stent Surgical History no surgical history Social History Smoking Status: Former smoker ROS ROS ED ROS Narrative Denies recent illness. Constitutional Constitutional ED: Denies chills or fever(s) Eyes Eyes: Denies blurry vision ENT ENT ED: Denies ear pain Cardiovascular Cardiovascular: Denies chest pain Respiratory/Chest Respiratory/Chest: Denies cough or dyspnea Gastrointestinal Gastrointestinal: Denies abdominal pain Genitourinary Genitourinary ED: Denies dysuria or hematuria Musculoskeletal Musculoskeletal: Denies arthralgias or back pain Integumentary Denies abscess Neurologic Neurologic: Denies headache(s) or paresthesias Psychiatric Psychiatric: Denies anxiety or depression Endocrine Endocrinology: Denies polydipsia or polyphagia Hematologic/Lymphatic Hematologic/Lymphatic: Denies lymphadenopathy Allergic/Immunologic Allergic/Immunologic ED: Denies mouth swelling, tongue swelling or urticaria EXAM Physical Exam Narrative Exam Narrative: 74-year-old male sitting upright in hallway chair due to due to current volume. Vital signs are stable afebrile. No acute distress. H EENT exam pupils round react to light. No signs of trauma. Moist mucous membranes. Scalp and head are nontender. No hematoma. C-spine and neck nontender. Back nontender. Lungs Lear to auscultation bilaterally. Heart regular rhythm rate about 60 no murmur. Chest wall ribs nontender. Abdomen soft nontender. Pelvic girdle intact. Both upper extremities are nontender no deformity normal range of motion normal telecommunications manager strength. Right lower leg hip knee ankle nontender. Heel calcaneus tenderness. Right foot neurovascularly intact normal dorsi plantarflexion normal DP pulse. Able to wiggle his toes normal touch sensation. Left hip and knee nontender anterior del cid contusion. No bony deformity. Dorsi plantarflexion intact. Normal touch sensation. Patient is awake alert. Answering questions following commands. GCS 15. Const Vital Signs: 04/23/25 14:48 04/23/25 16:11 Temperature 97 F L Temperature Source Temporal Pulse Rate 57 L Respiratory Rate 16 Respiratory Effort Normal Respiratory Depth Normal Respiratory Pattern Normal Blood Pressure 130/70 H Blood Pressure Mean 90 Pulse Ox 99 Oxygen Delivery Method Room Air Room Air MDM MDM MDM Narrative Medical decision making narrative: 64-year-old male fell about 5 foot from a stepladder has a right calcaneus fracture on x-ray. CT will be obtained. Be placed in a nonweightbearing posterior Ortho-Glass splint. Crutches. Outpatient follow-up with local podiatry. Currently does not anything for pain. He does have a contusion of his left lower leg mid to proximal del cid. He was offered but did not want an x-ray. He did not feel the injury was that significant. Repeat exam patient doing well at 6:31 PM. We placed in a posterior well-padded splint for his right calcaneus fracture. We discharged home with [place] for pain. Follow-up with the boat builder Dr. Leal. The orthopedic physician on-call refers to their group. History & Record Review Discussion w/independent historian: Patient and Family Additional record(s) reviewed:: Prior inpatient record, Prior outpatient record, Prior ED visit and Prior labs Radiography Diagnostic Testing: Clinical Impression(s) from Imaging Studies Ankle X-Ray 04/23/25 14:50 IMPRESSION: Possible calcaneal fracture. CT follow-up recommended if clinically indicated Reading Location: [facility] Ankle x-ray 3 views interpreted by myself and the radiologist shows an obvious calcaneus fracture. CAT scan was also obtained which shows the same. It is a comminuted fracture. There is displacement. Procedures Lower Extremity Splints Lower Extremity Splint: Orthoglass Splint Fabrication: Fabricated Location: Right (Patient with right heel calcaneus fracture. Placed in a well-padded posterior splint. Crutches. Nonweightbearing.) Discharge Plan Triage Chief Complaint: Fall ED Provider: [place] Dx/Rx/DC Orders Clinical Impression: Fall, Calcaneus fracture, right, Contusion of left leg Prescriptions: New hydrocodone-acetaminophen 5-325 mg tablet 1 tab PO Q4H PRN PRN (Reason: Pain) 5 Days Qty: 20 0RF No Action multivitamin [Daily Multiple] 1 EACH tablet 1 ea PO DAILY clopidogrel 75 MG tablet 75 mg PO DAILY saw palmetto 160 MG capsule 160 mg PO DAILY nitroglycerin 0.4 MG tablet, sublingual 0.4 mg SL Q5M PRN (Reason: CHEST PAIN) rosuvastatin 20 MG tablet 20 mg PO QHS loratadine [Claritin] 10 mg Tablet 10 mg PO DAILY Primary Care Provider: Hector Luevano Referrals: Hector Luevano MD [Primary Care Provider, Family Practice] Rex Leal DPM [Med Staff - Active Staff, Podiatry] - As soon as possible Activity Restrictions/Additional Instructions: Ice and elevate your right heel. You have a calcaneus fracture. Keep the splint on. Keep it dry and clean. No weightbearing on that foot. Call and follow-up with Dr. Rex Leal of the [facility] tomorrow. Call his office to get an appointment to be seen as soon as possible. Yuliya for more severe pain. Print Language: Amharic Disposition Disposition: Home, Self Care
[2025-04-23 16:48] VITALS: PULSE 60; RESP 16; O2SAT 98
--- NOTE | 2025-04-23 16:54 | CT_ITS ---
PROCEDURE: CT/Extremity Lower without Contra
[2025-04-23] MEDS: HYDROcodone Bitartrate/Apap 5/325 Tablet PO (17:13)
[2025-04-23 18:00] VITALS: PULSE 58; RESP 14
[2025-04-23 19:02] VITALS: BP 130/70; PULSE 58; RESP 14; TEMP 36.1; O2SAT 98
== END 2025-04-23 19:27 | disposition home or self-care (01) ==
PROVIDERS: Emergency Provider Emergency Medicine; PCP Family Medicine; Visit Provider Emergency Medicine
DX: S92.001A Unspecified fracture of right calcaneus, initial encounter for closed fracture (principal); S80.12XA Contusion of left lower leg, initial encounter; W11.XXXA Fall on and from ladder, initial encounter; I25.10 Atherosclerotic heart disease of native coronary artery without angina pectoris; E78.00 Pure hypercholesterolemia, unspecified; Z87.891 Personal history of nicotine dependence
CPT/HCPCS: 29515; 73610; 73700; 99282

== ENCOUNTER 2025-05-01 15:15 | Outpatient (CLI) | payer MEDICARE, OTHER, SELFPAY ==
[2025-05-01 18:00] LABS: Hematocrit 44.1 % (40-54); Hemoglobin 14.2 g/dL (13.0-16.5); Immature Granulocytes Count 0.040 X10^3/uL (0.0-0.0); Mean Corp Hgb Conc 32.2 g/dL (32-36); Mean Corpuscular Volume 90.9 fL (80-94); Mean Platelet Vol. 8.8 fl (6.2-12.0); NRBC Flagged by Analyzer 0 % (0-5); Platelet Count 411 K/mm3 (150-450); RBC Distribution Width CV 12.6 % (11.6-14.6); RBC Distribution Width SD 41.8 fl (35.1-43.9); Red Blood Count 4.85 M/mm3 (4.6-6.2); White Blood Count 10.3 K/mm3 (4.4-11.0)
[2025-05-01 18:36] LABS: AST(SGOT) 23 U/L (<=37); Alanine Aminotransfer ALT/SGPT 24 U/L (<=46); Albumin, Serum 4.2 g/dL (3.4-4.8); Alkaline Phosphatase 96 U/L (40-129); Anion Gap 13 (5-15); BUN 23 mg/dL (4-19); BUN/Creat Ratio 25.4 RATIO (10-20); Calcium,Total 9.9 mg/dL (7.6-11.0); Carbon Dioxide 24.4 mmol/L (21.0-32.0); Chloride 102 mmol/L (98-108); Globulin 3.1 g/dL (2.2-4.2); Glucose 101 mg/dL (70-99); Potassium 4.0 mmol/L (3.3-5.1); Vitamin D,25 Hydroxy 36.3 ng/mL (30-100)
--- OUTSIDE RECORDS SUMMARY | 2025-05-01 19:01 | XMS RPT_ITS | CCD ---
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 Name Role Phone Hector Luevano Primary Care Unavailable Alberto Germain Referring Unavailable Alberto Germain Attending Unavailable [place] Attending Unavailable Hector Luevano Primary Care Unavailable Medications Current Medications Medication Drug Class(es) Dates Sig (Normalized) Sig (Original) clopidogrel 75 mg oral tablet (4 sources) P2Y12 Platelet Inhibitor Start: 02-26-2017 take 75 mg by mouth once daily Clopidogrel Active 75 MG PO DAILY February 25, 2017 11:00pm loratadine 10 mg oral tablet (3 sources) Start: 05-01-2022 take 1 tablet by mouth once daily Loratadine (Claritin) 10 mg Tablet Active 10 MG PO DAILY May 01, 2022 12:00am Multivitamin (Daily Multiple) 1 EACH tablet (4 sources) Start: 02-26-2017 take 1 tablet by mouth once daily Multivitamin (Daily Multiple) 1 EACH tablet Active 1 EACH PO DAILY February 26, 2017 6:26am Start: 02-26-2017 take 1 tablet by jose francisco th once daily Multivitamin (Daily Multiple) 1 EACH tablet Active 1 EACH PO DAILY February 26, 2017 12:00am Start: 02-26-2017 take 1 tablet by jose francisco th once daily Multivitamin (Daily Multiple) 1 EACH tablet Active 1 EACH PO DAILY February 25, 2017 11:00pm nitroglycerin 0.4 mg sublingual tablet (4 sources) Nitrate Vasodilator Start: 10-13-2020 Nitroglycerin Active 0.4 MG SL Q5M October 12, 2020 11:00pm rosuvastatin calcium 20 mg oral tablet (4 sources) HMG-CoA Reductase Inhibitor Start: 10-13-2020 take 20 mg by mouth at bedtime Rosuvastatin Active 20 MG PO AT BEDTIME October 12, 2020 11:00pm Saw Selfridge (4 sources) Start: 02-26-2017 take 160 mg by mouth once daily Saw Selfridge Active 160 MG PO DAILY February 26, 2017 6:26am Start: 02-26-2017 take 160 mg by mouth once te y Saw Selfridge Active 160 MG PO DAILY February 26, 2017 12:00am Start: 02-26-2017 take 160 mg by mouth once te y Saw Selfridge Active 160 MG PO DAILY February 25, 2017 11:00pm Problems Problem Classification Problem Date Documented Date Episodic/Chronic Bacterial infection; unspecified site (4 sources) Infection by methicillin sensitive Staphylococcus aureus; Translations: [Methicillin susceptible Staphylococcus aureus infection, unspecified site] 02-28-2017 Episodic Coronary atherosclerosis and other heart disease (1 source) Atherosclerotic heart disease of [place] coronary artery without angina pectoris; Translations: [Atherosclerotic heart disease of [place] coronary artery without angina pectoris] Onset: 07-21-2024 Chronic Nonspecific chest pain (5 sources) Atypical chest pain; Translations: [Other chest pain] 08-12-2014 Episodic Superficial injury; contusion (1 source) Contusion of left lower leg, initial encounter; Translations: [Contusion of left lower leg, initial encounter] Onset: 04-25-2025 Episodic Results Test Name Value Interpretation Reference Range Facility Ankle min 3 Viewson 04-23-20 Ankle min 3 Views [facility] Imaging Services [address] [place] [address] Ankle min 3 Views MR#: [id number] Acct: [id number] Name: DARLING BENNETT Rep #: [id number] : 1960 64 From: Joby Ma DO PCP: Dr. Hector Luevano MD Status: PRE ER Study: Ankle min 3 Views Date of Exam: 04/23/25 Exam# [id number] Ordering Dr: Vin Fung PTomeka PROCEDURE: ANKLE MIN 3 VIEWS 04/23/2025 REASON FOR EXAM: FALL Initial encounter TECHNIQUE: Procedure Code: RADANK Modality: DX Procedure: ANKLE MIN 3 VIEWS Laterality: Right COMPARISON: None FINDINGS: Bones: Curvy linear lucent line through the calcaneus is suspect for fracture. Alignment is intact. No dislocation. Joints: No significant angle DJD Soft tissues: Soft tissues grossly unremarkable Other: RAD/Ankle min 3 Views IMPRESSION: Possible calcaneal fracture. CT follow-up recommended if clinically indicated Reading Location: [facility] CC: Dr. Hector Luevano MD; ED PHYSICIAN PROVIDER Supervisor Stripping: Signed Normal [facility] Emergency Department Summary on 04-23-2025 Emergency Department Summary [facility] Medical Records Department [address] [place] [address] Emergency Department Summary 04/23/25 MR#: [id number] Acct: [id number] Name: DARLING BENNETT Rep #: [id number] : 1960 64 From: Mt Vela MD PCP: Dr. Hector Luevano MD Status:DEP ER Location: ED HPI HPI - Fall History of Present Illness Chief Complaint: Fall Detail of Chief Complaint: Injury of right heel. Informant: patient and spouse/S.O. Occured/Mechanism Occurred: Today Narrative: Slipped off a ladder fell about 5 feet injuring his right heel. 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 History of CAD with stent on Plavix. Was on a stepladder fell landed awkwardly on his right heel. Also hit his left del cid. Did not hit his head no LOC. No headache or neck pain. No back or chest pain. Occurred 1 to 2 hours ago. No prior ankle or foot history Prior similar symptoms: No Recent Illness/Hospitalizat ion: No PFSH PFSH Medical History High cholesterol Coronary artery disease Medical History no medical history Home Medications ???Medication ???Instructions ???Recorded ???Last Taken ???Type clopidogrel 75 mg tablet 75 mg PO DAILY 02/26/17 Unknown Hi story multivitamin (Daily Multiple 1 ea PO DAILY 02/26/17 Unknown His tory tablet) saw palmetto 160 mg capsule 160 mg PO DAILY 02/26/17 Unknown H istory nitroglycerin 0.4 mg sublingual 0.4 mg sublingual Q5M PRN CHEST Unknown History tablet PAIN rosuvastatin 20 mg tablet 20 mg PO QHS 10/13/20 Unknown Hist ory loratadine 10 mg tablet (Claritin) 10 mg PO DAILY 05/01/22 Unknown History hydrocodone-acetamin ophen 5-325mg 1 tab PO Q4H PRN PRN Pain 5 days 04/23/25 Unknown Rx 5mg-325mg #20 TABLETS Allergy/AdvReac Type Severity Reaction Status Date / Time No Known Allergies Allergy Verified 04/23/25 14:47 Family History no significant family his Surgical History History of heart artery stent Surgical History no surgical history Social History Smoking Status: Former smoker ROS ROS ED ROS Narrative Denies recent illness. Constitutional Constitutional ED: Denies chills or fever(s) Eyes Eyes: Denies blurry vision ENT ENT ED: Denies ear pain Cardiovascular Cardiovascular: Denies chest pain Respiratory/Chest Respiratory/Chest: Denies cough or dyspnea Gastrointestinal Gastrointestinal: Denies abdominal pain Genitourinary Genitourinary ED: Denies dysuria or hematuria Musculoskeletal Musculoskeletal: Denies arthralgias or back pain Integumentary Denies abscess Neurologic Neurologic: Denies headache(s) or paresthesias Psychiatric Psychiatric: Denies anxiety or depression Endocrine Endocrinology: Denies polydipsia or polyphagia Hematologic/Lymphati c Hematologic/Lymphati c: Denies lymphadenopathy Allergic/Immunologic Allergic/Immunologic ED: Denies mouth swelling, tongue swelling or urticaria EXAM Physical Exam Narrative Exam Narrative: 74-year-old male sitting upright in hallway chair due to due to current volume. Vital signs are stable afebrile. No acute distress. H EENT exam pupils round react to light. No signs of trauma. Moist mucous membranes. Scalp and head are nontender. No hematoma. C-spine and neck nontender. Back nontender. Lungs Lear to auscultation bilaterally. Heart regular rhythm rate about 60 no murmur. Chest wall ribs nontender. Abdomen soft nontender. Pelvic girdle intact. Both upper extremities are nontender no deformity normal range of motion normal extension clerk strength. Right lower leg hip knee ankle nontender. Heel calcaneus tenderness. Right foot neurovascularly intact normal dorsi plantarflexion normal DP pulse. Able to wiggle his toes normal touch sensation. Left hip and knee nontender anterior del cid contusion. No bony deformity. Dorsi plantarflexion intact. Normal touch sensation. Patient is awake alert. Answering questions following commands. GCS 15. Const Vital Signs: 04/23/25 14:48 04/23/25 16:11 Temperature 97 F L Temperature Source Temporal Pulse Rate 57 L Respiratory Rate 16 Respiratory Effort Normal Respiratory Depth Normal Respiratory Pattern Normal Blood Pressure 130/70 H Blood Pressure Mean 90 Pulse Ox 99 Oxygen Delivery Method Room Air Room Air MDM MDM MDM Narrative Medical decision making narrative: 64-year-old male fell about 5 foot from a stepladder has a right calcaneus fracture on x-ray. CT (more content not included)... Normal [facility] Extremity Lower without Cont raon 04-23-2025 Extremity Lower without Contra [facility] Imaging Services [address] [place] [address] Extremity Lower without Contra MR#: [id number] Acct: [id number] Name: DARLING BENNETT Rep #: [id number] : 1960 64 From: Joby Ma DO PCP: Dr. Hector Luevano MD Status: REG ER Study: Extremity Lower without Contra Date of Exam: 06/23/24 Exam# [id number] Ordering Dr: Mt Vela MD PROCEDURE: EXTREMITY LOWER WITHOUT CONTRA 04/23/2025 REASON FOR EXAM: CALCANEUS FRACTURE Initial encounter. TECHNIQUE: Procedure Code: CTELWO Modality: CT Procedure: EXTREMITY LOWER WITHOUT CONTRA Coronal and Sagittal reconstruction series were provided. CONTRAST: None. VOLUME: Not applicable mL One or more dose reduction techniques were used (e.g., Automated exposure control, adjustment of the mA and/or kV according to patient size, use of iterative reconstruction technique). RADIATION DOSE SUMMARY: CTDlvol: 15.35 mGy DLP: 476.57 mGycm COMPARISON: Ankle radiograph today FINDINGS: Bones: Comminuted fracture of the calcaneus is present question of previous underlying cystic lesion versus distraction of fracture fragments. Fracture fragments are almost too numerous to count estimated over 12 small and large fragments Joints: Tibiofibular joint appears maintained. Distal femur and lateral malleolus appear intact. The talar dome and distal tibia appear intact the medial malleolus appears intact and there is normal articulation at the tibiotalar joint Soft Tissues: Soft tissue edema is swelling around the calcaneus CT/Extremity Lower without Contra IMPRESSION: Complex os calcis fracture. Reading [facility] CC: Dr. Hector Luevano MD; Dr. Mt Vela MD Supervisor Stripping: Signed Normal [facility] AAA Screeningon 06-29-2024 AAA Screening [facility] [address] [place] [address] AAA Screening 06/29/24 08 MR#: [id number] Acct: [id number] Name: DARLING BENNETT Rep #: [id number] : 1960 63 From: Kyle Harvey MD Attending Dr: Dr. Alberto Germain MD Status: [facility] CLI Ordering Dr: Alberto Germain MD Date: 06/29/24 Location: [facility] Sex: M C Admitted: Reason For Study: CAD in [place] Artery Aorta Measurements Aorta Doppler Measurements Proximal aorta measures2.31 x 2.15cm. in cross- Peak systolic flow velocities within the proximal sectional axis. aorta measure 46.9 cm/sec. Proximal aorta measures2.56cm. in longitudinal Peak systolic flow velocities within the mid aorta axis. measure 72.3 cm/sec. Mid aorta measures1.87 x 1.92cm. in cross- Peak systolic flow velocities within the distal sectional axis. aorta measure 75.9 cm/sec. Mid aorta measures1.94cm. in longitudinal axis. Distal aorta measures1.95 x 1.94cm. in cross- sectional axis. Distal aorta measures1.96cm. in longitudinal axis. Left Iliac Artery Left iliac artery measures 1.19 x 1.14 cm. in the cross-sectional axis. Left iliac artery measures 1.22 cm. in the longitudinal axis. Peak systolic velocity in the left iliac artery measures 111.9 cm/sec. Right Iliac Artery Right iliac artery measures 1.01 x 1.03 cm. in the cross-sectional axis. Right iliac artery measures 1.15 cm. in the longitudinal axis. VL/AAA Screening Interpretation Summary The dimensions of the intra-abdominal aorta appear normal, without evidence of aneurysmal dilatation. The iliac arteries also appear normal in caliber bilaterally. The intra-abdominal aorta and iliac arteries appear patent, demonstrating normal, pulsatile arterial flow and normal peak systolic velocities. Ordering Physician: Alberto Germain Referring Physician: Hector Luevano MD Performed By: Naveed Dominguez, T 06/29/241741 Date Kyle Harvey MD CC: Dr. Alberto Germain MD; Dr. Hector Luevano MD Date Dictated: 06/29/24820 Date Transcribed: 06/29/241741 Supervisor Stripping: Signed Normal [facility] No Panel InformationOrdered By: Hannah Patel on 05-19-2023 Troponin I High Sensitivity 10 pg/mL 3.0-78.0 [facility] Comment on above: Please Note: New Heydi t Units and Gender Specific Reference Ranges. For more information see Policy Stat Procedure [place] High Sensitivity Troponin (TNIH) and attachments. Absolute lymphocyte countOrd ered By: Hannah Patel on 05-18-2023 Lymphocytes Auto (Unsp spec) [#/Vol] 3.92 10*3/uL 0.83-4.51 [facility] Basophil percentageOrdered B y: Hannah Patel on 05-18-2023 Basophils/100 WBC (Bld) 0.3 % 0-1 [facility] Chloride [Moles/Vol] 106 mmol/L 98-107 [facility] Eosinophils/100 WBC (Bld) 1.5 % 0-5 [facility] Glucose [Mass/Vol] 103 mg/dL 74-106 [facility] Comment on above: Fasting Glucose resu lt from 100 to 125 mg/dL suggests IMPAIRED HOMEOSTASIS per A.D.A. criteria. Neutrophils (Bld) [#/Vol] 5.1 10*3/uL 2.0-7.7 [facility] Neutrophils/100 WBC (Bld) 50.4 % 47-70 [facility] Potassium [Moles/Vol] 3.6 mmol/L 3.5-5.1 [facility] Sodium [Moles/Vol] 139 mmol/L 136-145 [facility] WBC (Bld) [#/Vol] 10.1 10*3/uL 4.4-11.0 [facility] Blood erythrocytes count (nu mber/volume)Ordered By: Hannah Patel on 05-18-2023 RBC (Bld) [#/Vol] 4.93 10*6/uL 4.6-6.2 [facility] Blood hemoglobin measurement (mass/volume)Ordered By: Hannah Patel on 05-18-2023 Hemoglobin (Bld) [Mass/Vol] 14.5 g/dL 13.0-16.5 [facility] Blood lymphocytes/100 leukoc ytesOrdered By: Hannah Patel on 05-18-2023 Lymphocytes/100 WBC (Bld) 38.8 % 19-41 [facility] Blood monocytes/100 leukocyt esOrdered By: Hannah Patel on 05-18-2023 Monocytes/100 WBC (Bld) 8.7 % 0-10 [facility] Blood platelet mean volumeOr dered By: Hannah Patel on 05-18-2023 Platelet mean volume (Bld) [Entitic vol] 8.9 fL 6.2-12.0 [facility] Determination of erythrocyte mean corpuscular volume (MCV)Ordered By: Hannah Patel on 05-18-2023 MCV (RBC) [Entitic vol] 92.1 fL 80-94 [facility] Hematocrit Auto (Bld) [Volum e fraction]Ordered By: Hannah Patel on 05-18-2023 Hematocrit (Bld) [Volume fraction] 45.4 % 40-54 [facility] Laboratory - Chemistry and C hemistry - challengeOrdered By: Hannah Patel on 05-18-2023 CO2 [Moles/Vol] 30.0 mmol/L 21.0-32.0 [facility] Urea nitrogen/Creatinine [Mass ratio] 20.5 mg/mg 10-20 [facility] Laboratory - Hematology and Cell countsOrdered By: Hannah Patel on 05-18-2023 Erythrocyte distribution width (RBC) [Entitic vol] 45.8 fL 35.1-43.9 [facility] Erythrocyte distribution width (RBC) [Ratio] 13.2 % 11.6-14.6 [facility] Immature granulocytes/100 WBC (Bld) 0.300 % 0.0-0.9 [facility] Comment on above: IG% - Immature Granu locytes (promyelocytes, myelocytes and metamyelocytes) > 1% indicates that a LEFT SHIFT is Present. MCH (RBC) [Entitic mass] 29.4 pg 27.0-32.0 [facility] Nucleated RBC/100 WBC (Bld) [Ratio] 0 % 0-5 [facility] MCHC Auto (RBC) [Mass/Vol]Or dered By: Hannah Patel on 05-18-2023 MCHC (RBC) [Mass/Vol] 31.9 g/dL 32-36 [facility] No Panel InformationOrdered By: Hannah Patel on 05-18-2023 Estimated Creatinine Clearance Calc 91.01 ml/min [facility] Estimated GFR (MDRD) Amer 99 mL/min >60 [facility] Comment on above: GFR Calc Estimated GFR (MDRD) Non-Af Amer 82 mL/min >60 [facility] Comment on above: Non- GFR Calc Platelets bldOrdered By: Annie Patel on 05-18-2023 Platelets (Bld) [#/Vol] 333 10*3/uL 150-450 [facility] Serum or plasma calcium judy urement (mass/volume)Ordered By: Hannah Patel on 05-18-2023 Calcium [Mass/Vol] 9.3 mg/dL 8.5-10.1 [facility] Serum or plasma creatinine m easurement (mass/volume)Ordered By: Hannah Patel on 05-18-2023 Creatinine [Mass/Vol] 0.98 mg/dL 0.70-1.30 [facility] Comment on above: The validity of the calculated GFR & GFRAA in patients over 70 years has not been determined. Clinical correlation is essential. Serum or plasma urea nitroge n measurement (mass/volume)Ordered By: Hannah Patel on 05-18-2023 Urea nitrogen [Mass/Vol] 20 mg/dL 7-18 [facility] Thin prep Papanicolaou smear with manual screeningOrdered By: Hannah Patel on 05-18-2023 Thin prep Papanicolaou smear with manual screening 3 5-15 [facility] Basophil percentageon 2022 Cholesterol [Mass/Vol] 142 mg/dL <200 [facility] Comment on above: <200 mg/dL Desirable 200-240 mg/dL Borderline >240 mg/dL High Risk Triglyceride [Mass/Vol] 69 mg/dL <199 [facility] Comment on above: The drugs N-Acetylcy steine and Metamizole may falsely depress this assay.Serum Triglycerides Reference Interval Normal <150 mg/dL Borderline high 150 - 199 mg/dL High 200 - 499 mg/dL Very High > or = 500 mg/dL No Panel Informationon 10-13 Thyroid Stimulating Hormone (TSH) 1.49 uIU/mL 0.358-3.74 [facility] Serum or plasma cholesterol in HDL measurement (mass/volume)on 10-13-2022 Cholesterol in HDL [Mass/Vol] 60 mg/dL >40 [facility] Comment on above: The drugs N-Acetylcy steine and Metamizole may falsely depress this assay. Reference Range HDL <40 mg/dL Low HDL Cholesterol HDL >or= 60 mg/dL High HDL Cholesterol Serum or plasma cholesterol in VLDL measurement (mass/volume)on 10-13-2022 Cholesterol in VLDL [Mass/Vol] 14 mg/dL 5-40 [facility] Serum or plasma low density lipoprotein (LDL) cholesterol measurement (mass/volume)on 10-13-2022 Cholesterol in LDL [Mass/Vol] 68 mg/dL 0-130 [facility] No Panel Informationon 05-01 Troponin I High Sensitivity 11 pg/mL 3.0-78.0 [facility] Work Phone: Comment on above: Please Note: New [place] t Units and Gender Specific Reference Ranges. For more information see Policy Stat Procedure [place] High Sensitivity Troponin (TNIH) and attachments. Absolute lymphocyte counton 04-30-2022 Lymphocytes Auto (Unsp spec) [#/Vol] 3.87 10*3/uL 0.83-4.51 [facility] Work Phone: Basophil percentageon 2021 Basophils/100 WBC (Bld) 0.4 % 0-1 [facility] Work Phone: Chloride [Moles/Vol] 107 mmol/L 98-107 [facility] Work Phone: Eosinophils/100 WBC (Bld) 1.5 % 0-5 [facility] Work Phone: Glucose [Mass/Vol] 118 mg/dL 74-106 [facility] Work Phone: Comment on above: Fasting Glucose resu lt from 100 to 125 mg/dL suggests IMPAIRED HOMEOSTASIS per A.D.A. criteria. Neutrophils (Bld) [#/Vol] 5.2 10*3/uL 2.0-7.7 [facility] Work Phone: Neutrophils/100 WBC (Bld) 51.1 % 47-70 [facility] Work Phone: Potassium [Moles/Vol] 3.6 mmol/L 3.5-5.1 [facility] Work Phone: Sodium [Moles/Vol] 139 mmol/L 136-145 [facility] Work Phone: WBC (Bld) [#/Vol] 10.2 10*3/uL 4.4-11.0 [facility] Work Phone: Blood erythrocytes count (nu mber/volume)on 04-30-2022 RBC (Bld) [#/Vol] 4.89 10*6/uL 4.6-6.2 [facility] Work Phone: Blood hemoglobin measurement (mass/volume)on 04-30-2022 Hemoglobin (Bld) [Mass/Vol] 15.1 g/dL 13.0-16.5 [facility] Work Phone: Blood lymphocytes/100 leukoc yteson 04-30-2022 Lymphocytes/100 WBC (Bld) 38.1 % 19-41 [facility] Work Phone: Blood monocytes/100 leukocyt eson 04-30-2022 Monocytes/100 WBC (Bld) 8.8 % 0-10 [facility] Work Phone: Blood platelet mean volumeon 04-30-2022 Platelet mean volume (Bld) [Entitic vol] 8.8 fL 6.2-12.0 [facility] Work Phone: Determination of erythrocyte mean corpuscular volume (MCV)on 04-30-2022 MCV (RBC) [Entitic vol] 91.0 fL 80-94 [facility] Work Phone: Hematocrit Auto (Bld) [Volum e fraction]on 04-30-2022 Hematocrit (Bld) [Volume fraction] 44.5 % 40-54 [facility] Work Phone: Laboratory - Chemistry and C hemistry - challengeon 04-30-2022 CO2 [Moles/Vol] 28.0 mmol/L 21.0-32.0 [facility] Work Phone: Urea nitrogen/Creatinine [Mass ratio] 17.7 mg/mg 10-20 [facility] Work Phone: Laboratory - Hematology and Cell countson 04-30-2022 Erythrocyte distribution width (RBC) [Entitic vol] 41.8 fL 35.1-43.9 [facility] Work Phone: Erythrocyte distribution width (RBC) [Ratio] 12.7 % 11.6-14.6 [facility] Work Phone: Immature granulocytes/100 WBC (Bld) 0.100 % 0.0-0.9 [facility] Work Phone: Comment on above: IG% - Immature Granu locytes (promyelocytes, myelocytes and metamyelocytes) > 1% indicates that a LEFT SHIFT is Present. MCH (RBC) [Entitic mass] 30.9 pg 27.0-32.0 [facility] Work Phone: Nucleated RBC/100 WBC (Bld) [Ratio] 0 % 0-5 [facility] Work Phone: MCHC Auto (RBC) [Mass/Vol]on 04-30-2022 MCHC (RBC) [Mass/Vol] 33.9 g/dL 32-36 [facility] Work Phone: No Panel Informationon 04-30 Estimated Creatinine Clearance Calc 94.13 ml/min [facility] Work Phone: Estimated GFR (MDRD) Amer 101 mL/min >60 [facility] Work Phone: Comment on above: GFR Calc Estimated GFR (MDRD) Non-Af Amer 84 mL/min >60 [facility] Work Phone: Comment on above: Non- GFR Calc Platelets bldon 04-30-2022 Platelets (Bld) [#/Vol] 318 10*3/uL 150-450 [facility] Work Phone: Serum or plasma calcium judy urement (mass/volume)on 04-30-2022 Calcium [Mass/Vol] 9.2 mg/dL 8.5-10.1 [facility] Work Phone: Serum or plasma creatinine m easurement (mass/volume)on 04-30-2022 Creatinine [Mass/Vol] 0.96 mg/dL 0.70-1.30 [facility] Work Phone: Comment on above: The validity of the calculated GFR & GFRAA in patients over 70 years has not been determined. Clinical correlation is essential. Serum or plasma urea nitroge n measurement (mass/volume)on 04-30-2022 Urea nitrogen [Mass/Vol] 17 mg/dL 7-18 [facility] Work Phone: Thin prep Papanicolaou smear with manual screeningon 04-30-2022 Thin prep Papanicolaou smear with manual screening 4 5-15 [facility] Work Phone: Basophil percentageon 2021 Cholesterol [Mass/Vol] 135 mg/dL <200 [facility] Work Phone: Comment on above: <200 mg/dL Desirable 200-240 mg/dL Borderline >240 mg/dL High Risk Triglyceride [Mass/Vol] 68 mg/dL [facility] Work Phone: Comment on above: The drugs N-Acetylcy steine and Metamizole may falsely depress this assay.Serum Triglycerides Reference Interval Normal <150 mg/dL Borderline high 150 - 199 mg/dL High 200 - 499 mg/dL Very High > or = 500 mg/dL No Panel Informationon 07-27 Prostate Specific Antigen Screen 1.59 ng/mL 0.00-4.00 [facility] Work Phone: Comment on above: This test was perfor med using the TPSA assay method for [employer] chemistry system. Values obtained with differentassay methods cannot be used interchangably.When changing PSA assays in the course of monitoring apatient, additional sequential testing should be carriedout to confirm baseline values. Serum or plasma cholesterol in HDL measurement (mass/volume)on 07-27-2021 Cholesterol in HDL [Mass/Vol] 59 mg/dL [facility] Work Phone: Comment on above: The drugs N-Acetylcy steine and Metamizole may falsely depress this assay. Reference Range HDL <40 mg/dL Low HDL Cholesterol HDL >or= 60 mg/dL High HDL Cholesterol Serum or plasma cholesterol in VLDL measurement (mass/volume)on 07-27-2021 Cholesterol in VLDL [Mass/Vol] 14 mg/dL 5-40 [facility] Work Phone: Serum or plasma low density lipoprotein (LDL) cholesterol measurement (mass/volume)on 07-27-2021 Cholesterol in LDL [Mass/Vol] 62 mg/dL 0-130 [facility] [facility] Work Phone: Vital Signs Date Time Vital Sign Value Performing Clinician Ernie lity 05-19-2023 02:44-0500 Diastolic blood pressure 71 mm[Hg] [facility] 05-19-2023 02:44-0500 Heart rate 65 /min [facility] 05-19-2023 02:44-0500 Respiratory rate 18 /min [facility] 05-19-2023 02:44-0500 SaO2% (BldA) [Mass fraction] 96 % [facility] 05-19-2023 02:44-0500 Systolic blood pressure 122 mm[Hg] [facility] 05-18-2023 23:45-0500 Body height 190.5 cm [facility] 05-18-2023 23:45-0500 Body mass index (BMI) [Ratio] 31.4 kg/m2 [facility] 05-18-2023 23:45-0500 Body temperature 97.4 [degF] [facility] 05-18-2023 23:45-0500 Body weight 114 kg [facility] 05-01-2022 02:15-0500 Diastolic blood pressure 79 mm[Hg] [facility] Work Phone: 05-01-2022 02:15-0500 Heart rate 54 /min [facility] Work Phone: 05-01-2022 02:15-0500 Respiratory rate 16 /min [facility] Work Phone: 05-01-2022 02:15-0500 SaO2% (BldA) [Mass fraction] 95 % [facility] Work Phone: 05-01-2022 02:15-0500 Systolic blood pressure 144 mm[Hg] [facility] Work Phone: 04-30-2022 23:23-0500 Body height 190.5 cm [facility] Work Phone: 04-30-2022 23:23-0500 Body mass index (BMI) [Ratio] 30.8 kg/m2 [facility] Work Phone: 04-30-2022 23:23-0500 Body temperature 98.2 [degF] [facility] Work Phone: 04-30-2022 23:23-0500 Body weight 112 kg [facility] Work Phone: Encounters Encounter Date Encounter Type Care Provider Facility Start: 04-23-2025 End: 04-23-2025 Emergency department patient visit [place] Facility:[facility] Start: 06-29-2024 End: 06-29-2024 ambulatory Hector Luevano Facility:[facility] Start: 05-18-2023 End: 05-19-2023 Emergency department patient visit [facility] Work Phone: Start: 10-13-2022 End: 10-13-2022 ambulatory [facility] Work Phone: Start: 10-13-2022 End: 10-13-[address] [facility] Start: 04-30-2022 End: 05-01-2022 Emergency department patient visit [facility] Start: 07-27-2021 End: 07-27-[address] [facility] Procedures Date Procedure Procedure Detail Performing Clinician Start: 05-18-2023 Plain chest X-ray Start: 04-30-2022 Plain chest X-ray Plan of Treatment Date Care Activity Detail Author Start: 05-19-2023 [facility] Start: 05-18-2023 [facility] Start: 04-30-2022 [facility] Work Phone: Patient Education ED Chest Pain, Uncertain Cause [facility] Work Phone: Patient referral [facility] Work Phone: Immunizations Immunization Date Immunization Notes Care Provider Tanya landeros 03-07-2019 tetanus toxoid, redu miguel diphtheria toxoid, and acellular pertussis vaccine, adsorbed [facility] 03-22-2016 Influenza virus vaccine [facility] Payers Date Payer Category Payer Unknown [id number] 2024 Self-pay [id number] 2024 Medicare [id number] 2024 Unknown [id number] 2016 Private Health Insurance [facility] [id number] Unknown [id number] Unknown [id number] Social History Date Type Detail Facility Start: 10-13-2020 End: 05-18-2023 Tobacco smoking status WVIS Unknown if ever smoked [facility] Start: 03-07-2019 Cigars [facility] Start: 1960 Sex Assigned At Male [facility] Mental Status Date Assessment Result Facility 05-18-2023 Cognitive function Voice/Name [facility] Work Phone: 04-30-2022 Cognitive function Voice/Name [facility] Work Phone: Evaluation note Note Date & Type Note Facility Evaluation note No assessment information availa ble [facility] Work Phone: Advance Directives No Advanced Directives Records Found Advance Directive Response Recorded Date/ Time Living Will No October 13, 2020 12:14am Power of Music Specialist No October 13 12:14am Advance Directive Response Recorded Date/ Time Living Will No April 30 11:25pm Power of Music Specialist No April 30, 2022 11:25pm Advance Directive Response Recorded Date/ Time Living Will No May 01 12:25am Power of Music Specialist No May 01, 2022 12:25am Advance Directive Response Recorded Date/ Time Living Will No May 18 023 11:54pm Power of Music Specialist No May 18, 2023 11:54pm Chief Complaint and Reason for Visit Chief Complaint cp Chief Complaint CP Summary Purpose Family History No Family History Records Found Additional Source Comments Goals (unrecognized section and content) Goals may be documented in a n alternate sectionGoals may be documented in an alternate sectionGoals may be documented in an alternate sectionGoals may be documented in an alternate section Care Teams (unrecognized sec tion and content) Team Status: Active Member Role Status Dates Dr. Hector Luevano MD Family Provider Active Dr. Hector Luevano MD Primary Care Provider Active Team Status: Inactive Member Role Status Dates Dr. Hector Luevano MD Primary Care Provider Active KATIE ROGEL Attending Provider, Referring Provider Ac tive Team Status: Inactive Member Role Status Dates Dr. Hector Luevano MD Primary Care Provider Active Dr. Hannah Patel MD Emergency Provider Active (unrecognized sect ion and content) No Status Records Found INFORMATION SOURCE (unrecogn ized section and content) DATE CREATED AUTHOR 04/27/2025 [facility] FOR RECORDS PERTAINING TO PATIENTS WHO ARE OR HAVE BEEN ENROLLED IN A CHEMICAL DEPENDENCY/SUBSTANCEABUSE PROGRAM, SOME INFORMATION MAY BE OMITTED. This clinical summary was aggregated from multiple sources. Caution should be exercised in using it in the provision of clinical care. This summary normalizes information from multiple sources, and as a consequence, information in this document may materially change the coding, format and clinical context of patient data. In addition, data may be omitted in some cases. CLINICAL DECISIONS SHOULD BE BASED ON THE PRIMARY CLINICAL RECORDS. [employer] provides no warranty or guarantee of the accuracy or completeness of information in this document.
== END 2025-05-01 23:59 | disposition home or self-care (01) ==
PROVIDERS: PCP Family Medicine
DX: S92.909A Unspecified fracture of unspecified foot, initial encounter for closed fracture (principal); Z00.00 Encounter for general adult medical examination without abnormal findings
CPT/HCPCS: 36415; 80053; 82306; 83036; 85025

== ENCOUNTER 2025-05-12 12:36 | Day surgery (SDC) | payer MEDICARE, OTHER, SELFPAY ==
--- NOTE | 2025-05-10 15:09 | PAT.ANE_ITS ---
Pre-Assessment Diagnosis/Proposed Procedure Planned Operative Procedure(s): (R) Application of a Delta frame to the right foot calcaneal fracture. 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 When Was Last Pacemaker Check QUESTION #4 FULL TEXT: You/Your Family Experience fever (hyperthermia) with Anesthesia Last Oral Intake Last Oral intake: Last Oral Intake NPO since Meds taken in AM with sips of water? 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 - vice president of talent management: PONV - vice president of talent management Female No 05/10/25 09:26 HX of Motion Sickness No 05/10/25 09:26 HX of N/V After Surgery No 05/10/25 09:26 Non-Smoker Yes 05/10/25 09:26 Duration of Surgery greater Yes 05/10/25 09:26 than 60 minutes Number of Risk Factors 2 05/10/25 09:26 PONV Score Moderate Risk 05/10/25 09:26 Height & Weight Height & Weight: Anesthesia: Height & Weight Height 6 ft 3 in 04/23/25 14:48 Respiratory Assessment Respiratory Assessment - vice president of talent management: Respiratory Tract Infection Hx - vice president of talent management Hx Respiratory Tract Infection No 05/10/25 09:26 STOP Sleep Apnea STOP Sleep Apnea - vice president of talent management: STOP Sleep Apnea - vice president of talent management Hx Hypertension No 05/10/25 09:26 Hx Sleep Apnea No 05/10/25 09:26 CPAP BIPAP Do you snore loudly (louder No 05/10/25 09:26 than talking or can be heard Do you often feel tired/ No 05/10/25 09:26 fatigued/ sleepy during daytime? Has anyone observed you stop No 05/10/25 09:26 breathing during sleep? STOP Results Negative 05/10/25 09:26 QUESTION #5 FULL TEXT : Do you snore loudly (louder than talking or can be heard through closed doors)? 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 Specify any problems Hx of Preganancy in last 3 N/A 05/10/25 09:26 Months Nurse Filling Out Transfusion [facility] 05/10/25 09:26 & Questions: Date: 05/10/25 05/10/25 09:26 Time: :05/10/25 09:26 Patient unable to answer at this time (ie. confused, unrespo /Reproduction History /Reproductive History - vice president of talent management: /Reproductive Hx- vice president of talent management Hx Now No 05/10/25 09:26 Gestational Age (in weeks): EDC: Hx Hx Para Hx Section SAB No 05/10/25 09:26 Does the father of the baby or his family experience fever w Father of the baby Malignant Hypertension history comment [facility] Medical History Wears glasses Former smoker History of stress test Cardiology follow-up encounter High cholesterol Coronary artery disease Home Medications ?Medication ?Instructions ?Recorded ?Last Taken ?Type clopidogrel 75 mg tablet 75 mg PO DAILY 02/26/1704/22 History multivitamin (Daily Multiple 1 ea PO DAILY 02/26/17 Un known History tablet) saw palmetto 160 mg capsule 160 mg PO DAILY 02/26/17 U nknown History nitroglycerin 0.4 mg sublingual 0.4 mg sublingual Q5M PRN CHEST 10/13/20 Unknown History tablet PAIN rosuvastatin 20 mg tablet 20 mg PO QHS 10/13/20 Unknow n History loratadine 10 mg tablet (Claritin) 10 mg PO DAILY 04/22 Unknown History hydrocodone-acetaminophen 5-325mg 1 tab PO Q4H PRN PRN Pain 5 days 04/23/25 Unknown Rx 5mg-325mg #20 TABLETS Allergy/AdvReac Type Severity Reaction Status Date / Time No Known Allergies Allergy Verified 05/10/25 09:24 Family History no significant family his Surgical History History of incision and drainage History of back surgery History of cardiac catheterization History of heart artery stent Social History Smoking Status: Former smoker Audit: Pertinent Findings Pertinent Findings EKG Perinent findings: May 01, 2025. Sinus bradycardia at [address] depression. Stress test pertinent findings: January 23, 2021. EF is 69%. No myocardial perfusion changes consider diagnostic for stress induced myocardial ischemia. 13 METS. Consult pertinent findings: 06/03/2024. Dr. Germain?cardiology. 1. CAD in [place] artery-status post PCI/stent to the diagonal branch in 2015. Latest stress test in 2020 showed no ischemia. 2. Hypertension?normal. Recommendation Anesthesia Recommendation Anesthesia recommendation: OPTIMIZED for anesthesia
[2025-05-11 08:48] LABS: Magnesium 2.3 mg/dL (1.5-2.2)
[2025-05-12] VITALS (8 sets, daily range): BP systolic 125–156; BP diastolic 77–94; PULSE 56–59; RESP 12–18; TEMP 36.3–36.8; O2SAT 98–100; BMI 31.2
--- NOTE | 2025-05-12 12:45 | PCM.PRE.AN2 ---
ASA Classification* ASA Classification ASA Classification: 2 Assessment & Plan Anesthesia* Anesthesia Assessment Anesthesia Assessment: Discussed sedation and/or anesthesia options, risks, benefits, and alternatives with patient/parents/legal guardian/POA. Questions invited. The patient/parents/legal guardian/POA seems to understand and agrees to proceed with anesthesia plan. Reviewed the physical assessment, medical history, allergy history and patient home medications list prior to surgery/procedure/anesthetic and documented any changes. Performed airway and anesthesia risk assessments. Anesthesia Type Anesthesia Type: General and Block (If requested by surgeon. Consented.) Anesthesia Focused Assessment* Airway Assessment Mouth opens: >3 cm Mallampati Score: II Labs Anesthesia Preop lab: CBC WBC, (4.4-11.0) 10.3 K/mm3 05/01/25, 15:25 RBC, (4.6-6.2) 4.85 M/mm3 05/01/25, 15:25 Hgb, (13.0-16.5) 14.2 g/dL 05/01/25, 15:25 Hct, (40-54) 44.1 % 05/01/25, 15:25 Plt Count, (150-450) 411 K/mm3 05/01/25, 15:25 CHEMISTRY Potassium, (3.3-5.1) 4.0 mmol/L 05/01/25, 15:25 Sodium, (133-145) 140 mmol/L 05/01/25, 15:25 Magnesium, (1.5-2.2) 2.3 mg/dL H 05/11/25, 07:14 BUN, (4-19) 23 mg/dL H 05/01/25, 15:25 Creatinine, (0.70-1.20) 0.92 mg/dL 05/01/25, 15:25 Glucose, (70-99) 101 mg/dL H 05/01/25, 15:25 TSH, (0.358-3.74) 1.49 uIU/mL 10/13/22, 06:25 COAG Pre-Assessment Diagnosis/Proposed Procedure Planned Operative Procedure(s): (R) Application of a Delta frame to the right foot calcaneal fracture. 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 When Was Last Pacemaker Check QUESTION #4 FULL TEXT: You/Your Family Experience fever (hyperthermia) with Anesthesia Last Oral Intake Last Oral intake: Last Oral Intake NPO since Meds taken in AM with sips of water? 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 Female No 05/10/25 09:26 HX of Motion Sickness No 05/10/25 09:26 HX of N/V After Surgery No 05/10/25 09:26 Non-Smoker Yes 05/10/25 09:26 Duration of Surgery greater Yes 05/10/25 09:26 than 60 minutes Number of Risk Factors 2 05/10/25 09:26 PONV Score Moderate Risk 05/10/25 09:26 Height & Weight Height & Weight: Anesthesia: Height & Weight Height 6 ft 3 in 04/23/25 14:48 Respiratory Assessment Respiratory Assessment - shellfish dredge operator: Respiratory Tract Infection Hx - shellfish dredge operator Hx Respiratory Tract Infection No 05/10/25 09:26 STOP Sleep Apnea STOP Sleep Apnea - shellfish dredge operator: STOP Sleep Apnea - shellfish dredge operator Hx Hypertension No 05/10/25 09:26 Hx Sleep Apnea No 05/10/25 09:26 CPAP BIPAP Do you snore loudly (louder No 05/10/25 09:26 than talking or can be heard Do you often feel tired/ No 05/10/25 09:26 fatigued/ sleepy during daytime? Has anyone observed you stop No 05/10/25 09:26 breathing during sleep? STOP Results Negative 05/10/25 09:26 QUESTION #5 FULL TEXT : Do you snore loudly (louder than talking or can be heard through closed doors)? 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 Specify any problems Hx of Preganancy in last 3 N/A 05/10/25 09:26 Months Nurse Filling Out Transfusion [facility] 05/10/25 09:26 & Questions: Date: 05/10/25 05/10/25 09:26 Time: :05/10/25 09:26 Patient unable to answer at this time (ie. confused, unrespo /Reproduction History /Reproductive History - shellfish dredge operator: /Reproductive Hx- shellfish dredge operator Hx Now No 05/10/25 09:26 Gestational Age (in weeks): EDC: Hx Hx Para Hx Section SAB No 05/10/25 09:26 Does the father of the baby or his family experience fever w Father of the baby Malignant Hypertension history comment Active Medications Active Medications: Current Medications Generic Name Dose Route Start Last Admin Trade Name Freq PRN Reason Stop Dose Admin Acetaminophen 1,000 mg 05/12/25 14:50 Acetaminophen 500 Mg Tablet PO 05/12/25 14:51 PREOP ONE Gabapentin 600 mg 05/12/25 14:50 Gabapentin 600 Mg Tablet PO 05/12/25 14:51 PREOP ONE Cefazolin Sodium 2 gm/ Sodium 110 mls @ 150 mls/hr 05/12/25 14:50 Chloride IV 05/12/25 15:33 INTRAOP ONE Insulin Human Lispro 1 - 6 unit 05/12/25 14:50 Insulin Lispro 100 Unit/Ml Insuln.Pen SC Q4H PRN PRN BG>/= 180, SEE PROTOCOL Protocol PFSH Medical History Wears glasses Former smoker History of stress test Cardiology follow-up encounter High cholesterol Coronary artery disease Home Medications ?Medication ?Instructions ?Recorded ?Last Taken ?Type clopidogrel 75 mg tablet 75 mg PO DAILY 02/26/17 05/05/25 History multivitamin (Daily Multiple 1 ea PO DAILY 02/26/17 Unknown History tablet) saw palmetto 160 mg capsule 160 mg PO DAILY 02/26/17 Unknown History nitroglycerin 0.4 mg sublingual 0.4 mg sublingual Q5M PRN CHEST 10/13/20 Unknown History tablet PAIN rosuvastatin 20 mg tablet 20 mg PO QHS 10/13/20 Unknown History loratadine 10 mg tablet (Claritin) 10 mg PO DAILY 05/01/22 Unknown History hydrocodone-acetaminophen 5-325mg 1 tab PO Q4H PRN PRN Pain 5 days 04/23/25 Unknown Rx 5mg-325mg #20 TABLETS Allergy/AdvReac Type Severity Reaction Status Date / Time No Known Allergies Allergy Verified 05/10/25 09:24 Family History no significant family his Surgical History History of incision and drainage History of back surgery History of cardiac catheterization History of heart artery stent Social History Smoking Status: Former smoker Review of Systems (Anesthesia) ROS Narrative System reviewed and no additional complaints, except as documented.
--- OUTSIDE RECORDS SUMMARY | 2025-05-12 12:57 | XMS RPT_ITS | CCD ---
Author Organization [facility] Inform ion Partnership [facility] Care Team Providers Care Drawer In Stitch Bonding Machine Name Role Phone Hector Luevano Primary Care Unavailable McMorrow POLYETHYLENE BAG MACHINE OPERATOR, Nathan Attending Unavailable McMorrow Nathan DUTTA Referring Unavailable Hector Luevano Primary Care Unavailable [facility] Attending Unavailable Hector Luevano Primary Care Unavailable Venkata Segal Attending Unavailable Alberto Germain Referring Unavailable Hector Luevano Primary Care Unavailable Alberto Germain Attending Unavailable Medications Current Medications Medication Drug Class(es) [...] AT BEDTIME October 12, 2020 11:00pm Saw [place] (4 sources) Start: 02-26-2017 take 160 mg by mouth once daily Saw [place] Active 160 MG PO DAILY February 26, 2017 6:26am Start: 02-26-2017 take 160 mg by mouth once te y Saw [place] Active 160 MG PO DAILY February 26, 2017 12:00am Start: 02-26-2017 take 160 mg by mouth once te y Saw [place] Active 160 MG PO DAILY February 25, 2017 11:00pm Problems Problem Classification Problem Date Documented Date Episodic/Chronic Bacterial infection; unspecified site (4 sources) Infection by methicillin sensitive Staphylococcus aureus; Translations: [Methicillin susceptible Staphylococcus aureus infection, unspecified site] 02-28-2017 Episodic Coronary atherosclerosis and other heart disease (1 source) 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; Translations: [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] Onset: 07-21-2024 Chronic Fracture of lower limb (1 source) Unspecified fracture of unspecified foot, initial encounter for closed fracture; Translations: [Unspecified fracture of unspecified foot, initial encounter for closed fracture] Onset: 05-02-2025 Episodic Nonspecific chest pain (5 sources) Atypical chest pain; Translations: [Other chest pain] 08-12-2014 Episodic Other injuries and conditions due to external causes (1 source) Encounter for examination and observation following other accident; Translations: [Encounter for examination and observation following other accident] Onset: 05-03-2025 Episodic Results Test Name Value Interpretation Reference Range Facility CBC W/Diff, Automatedon 04-22 Absolute Lymph 1.79 X10 3/uL Normal 0.83-4.51 [facility] Comment on above: Performed By: #### L 506.1001, L100.0100, L501.9985, L500.4050 #### [facility] [address] [place], [address] Absolute Neut 7.7 X10 3/uL Normal 2.0-7.7 [facility] Comment on above: Performed By: #### L 506.1001, L100.0100, L501.9985, L500.4050 #### [facility] [address] [place], [address] Basophils/100 WBC (Bld) 0.3 % Normal 0-1 [facility] Comment on above: Performed By: #### L 506.1001, L100.0100, L501.9985, L500.4050 #### [facility] [address] [place], [address] Eosinophils/100 WBC (Bld) 0.3 % Normal 0-5 [facility] Comment on above: Performed By: #### L 506.1001, L100.0100, L501.9985, L500.4050 #### [facility] [address] [place], [address] Erythrocyte distribution width (RBC) [Ratio] 12.6 % Normal 11.6-14.6 [facility] Comment on above: Performed By: #### L 506.1001, L100.0100, L501.9985, L500.4050 #### [facility] [address] [place], [address] Hematocrit (Bld) [Volume fraction] 44.1 % Normal 40-54 [facility] Comment on above: Performed By: #### L 506.1001, L100.0100, L501.9985, L500.4050 #### [facility] [address] [place], [address] Hemoglobin (Bld) [Mass/Vol] 14.2 g/dL Normal 13.0-16.5 [facility] Comment on above: Performed By: #### L 506.1001, L100.0100, L501.9985, L500.4050 #### [facility] [address] [place], [address] IG% 0.400 Normal 0.0-0.9 [facility] Comment on above: Result Comment: IG% - Immature Granulocytes (promyelocytes, myelocytes and metamyelocytes) > 1% indicates that a LEFT SHIFT is Present. Performed By: #### L 506.1001, L100.0100, L501.9985, L500.4050 #### [facility] [address] [place], [address] Lymphocytes/100 WBC (Bld) 17.4 % Low 19-41 [facility] Comment on above: Performed By: #### L 506.1001, L100.0100, L501.9985, L500.4050 #### [facility] [address] [place], [address] MCH (RBC) [Entitic mass] 29.3 pg Normal 27.0-32.0 [facility] Comment on above: Performed By: #### L 506.1001, L100.0100, L501.9985, L500.4050 #### [facility] [address] [place], [address] MCHC (RBC) [Mass/Vol] 32.2 g/dL Normal 32-[address] [facility] Comment on above: Performed By: #### L 506.1001, L100.0100, L501.9985, L500.4050 #### [facility] [address] [place], [address] MCV (RBC) [Entitic vol] 90.9 fL Normal 80-94 [facility] Comment on above: Performed By: #### L 506.1001, L100.0100, L501.9985, L500.4050 #### [facility] [address] [place], [address] Monocytes/100 WBC (Bld) 7.0 % Normal 0-10 [facility] Comment on above: Performed By: #### L 506.1001, L100.0100, L501.9985, L500.4050 #### [facility] [address] [place], [address] Neutrophils/100 WBC (Bld) 74.6 % High 47-70 [facility] Comment on above: Performed By: #### L 506.1001, L100.0100, L501.9985, L500.4050 #### [facility] [address] [place], [address] Nucleated RBC (Bld) [#/Vol] 0 10*3/uL Normal 0-5 [facility] Comment on above: Performed By: #### L 506.1001, L100.0100, L501.9985, L500.4050 #### [facility] [address] [place], [address] Platelet mean volume (Bld) [Entitic vol] 8.8 fL Normal 6.2-12.0 [facility] Comment on above: Performed By: #### L 506.1001, L100.0100, L501.9985, L500.4050 #### [facility] [address] [place], [address] Platelets (Bld) [#/Vol] 411 10*3/uL Normal 150-450 [facility] Comment on above: Performed By: #### L 506.1001, L100.0100, L501.9985, L500.4050 #### [facility] [address] [place], [address] RBC (Bld) [#/Vol] 4.85 10*6/uL Normal 4.6-6.2 [facility] Comment on above: Performed By: #### L 506.1001, L100.0100, L501.9985, L500.4050 #### [facility] [address] [place], [address] RDW SD 41.8 fl Normal 35.1-43.9 [facility] Comment on above: Performed By: #### L 506.1001, L100.0100, L501.9985, L500.4050 #### [facility] [address] [place], [address] WBC (Bld) [#/Vol] 10.3 10*3/uL Normal 4.4-11.0 [facility] Comment on above: Performed By: #### L 506.1001, L100.0100, L501.9985, L500.4050 #### [facility] [address] [place], [address] Comprehensive Metabolic Prof ilon 05-01-2025 Albumin [Mass/Vol] 4.2 g/dL Normal 3.4-4.8 [facility] Comment on above: Performed By: #### L 506.1001, L100.0100, L501.9985, L500.4050 #### [facility] [address] [place], [address] Albumin/Globulin [Mass ratio] 1.3 {ratio} Normal 0.9-2.4 [facility] Comment on above: Performed By: #### L 506.1001, L100.0100, L501.9985, L500.4050 #### [facility] [address] [place], [address] ALK PHOS 96 U/L Normal 40-129 [facility] Comment on above: Performed By: #### L 506.1001, L100.0100, L501.9985, L500.4050 #### [facility] [address] [place], [address] ALT [Catalytic activity/Vol] 24 U/L Normal <=46 [facility] Comment on above: Performed By: #### L 506.1001, L100.0100, L501.9985, L500.4050 #### [facility] [address] [place], [address] AST [Catalytic activity/Vol] 23 U/L Normal <=37 [facility] Comment on above: Performed By: #### L 506.1001, L100.0100, L501.9985, L500.4050 #### [facility] [address] [place], [address] Bilirubin [Mass/Vol] 0.44 mg/dL Normal 0.00-1.30 [facility] Comment on above: Performed By: #### L 506.1001, L100.0100, L501.9985, L500.4050 #### [facility] [address] [place], [address] BUN/CRE 25.4 RATIO High 10-20 [facility] Comment on above: Performed By: #### L 506.1001, L100.0100, L501.9985, L500.4050 #### [facility] [address] [place], [address] Calcium [Mass/Vol] 9.9 mg/dL Normal 7.6-11.0 [facility] Comment on above: Performed By: #### L 506.1001, L100.0100, L501.9985, L500.4050 #### [facility] [address] [place], [address] Chloride [Moles/Vol] 102 mmol/L Normal 98-108 [facility] Comment on above: Performed By: #### L 506.1001, L100.0100, L501.9985, L500.4050 #### [facility] [address] [place], [address] CO2 [Moles/Vol] 24.4 mmol/L Normal 21.0-32.0 [facility] Comment on above: Performed By: #### L 506.1001, L100.0100, L501.9985, L500.4050 #### [facility] [address] [place], [address] Creatinine [Mass/Vol] 0.92 mg/dL Normal 0.70-1.[address] [facility] Comment on above: Performed By: #### L 506.1001, L100.0100, L501.9985, L500.4050 #### [facility] [address] [place], [address] GAP 13 Normal 5-15 [facility] Comment on above: Performed By: #### L 506.1001, L100.0100, L501.9985, L500.4050 #### [facility] [address] [place], [address] GFR/1.73 sq M.predicted among non-blacks MDRD (S/P/Bld) [Vol rate/Area] 92 mL/min/{1.73_m2} Normal >60 [facility] Comment on above: Result Comment: mL/m in/1.73m2 CKD-EPI Creatinine Equation (2020) Performed By: #### L 506.1001, L100.0100, L501.9985, L500.4050 #### [facility] [address] [place], [address] Globulin (S) [Mass/Vol] 3.1 g/dL Normal 2.2-4.2 [facility] Comment on above: Performed By: #### L 506.1001, L100.0100, L501.9985, L500.4050 #### [facility] [address] [place], [address] Glucose [Mass/Vol] 101 mg/dL High 70-99 [facility] Comment on above: Performed By: #### L 506.1001, L100.0100, L501.9985, L500.4050 #### [facility] [address] [place], [address] Potassium [Moles/Vol] 4.0 mmol/L Normal 3.3-5.[address] [facility] Comment on above: Performed By: #### L 506.1001, L100.0100, L501.9985, L500.4050 #### [facility] [address] [place], [address] Sodium [Moles/Vol] 140 mmol/L Normal 133-145 [facility] Comment on above: Performed By: #### L 506.1001, L100.0100, L501.9985, L500.4050 #### [facility] [address] [place], [address] T PROT 7.2 g/dL Normal 5.9-8.4 [facility] Comment on above: Performed By: #### L 506.1001, L100.0100, L501.9985, L500.4050 #### [facility] [address] [place], [address] Urea nitrogen [Mass/Vol] 23 mg/dL High 4-19 [facility] Comment on above: Performed By: #### L 506.1001, L100.0100, L501.9985, L500.4050 #### [facility] [address] [place], [address] Hemoglobin A1con 05-01-2025 HbA1c (Bld) [Mass fraction] 5.4 % Normal <=5.6 [facility] Comment on above: Result Comment: Norm al < 5.7 % Prediabetic 5.7 - 6.4 % Diabetic >or= 6.5 % Please note range changes. Performed By: #### L 506.1001, L100.0100, L501.9985, L500.4050 #### [facility] [address] [place], [address] Vitamin D,25 Hydroxyon 05-01 Vitamin D 25-OH 36.3 ng/mL Normal 30-100 [facility] Comment on above: Result Comment: Alda min D Status Deficiency: <20 ng/mL (50nmol/L) Insufficiency: 20-30 ng/mL (50-75 nmol/L) Sufficiency: 30-100 ng/mL (75-250 nmol/L) Toxicity: >100 ng/mL (>250 nmol/L) Performed By: #### L 506.1001, L100.0100, L501.9985, L500.4050 #### [facility] [address] [place], [address] Ankle min 3 Viewson 04-23-20 25 Ankle min 3 Views [facility] Imaging Services [address] [address] Ankle min 3 Views MR#: [id number] Acct: [id number] Name: DARLING BENNETT Rep #: [id number] : 1960 M 64 From: Joby Ma DO PCP: Dr. Hector Luevano MD Status: PRE ER Study: Ankle min 3 Views Date of Exam: 04/23/25 Exam# [id number] Ordering Dr: Antonieta,Vin P. PROCEDURE: ANKLE MIN 3 VIEWS 04/23/2025 REASON [...] follow-up recommended if clinically indicated Reading Location: [facility] CC: Dr. 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 History of CAD with stent on Plavix. 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 Right lower leg hip knee ankle [...] x-ray. CT (more content not included)... Normal [facility] Extremity Lower without Cont raon 04-23-2025 Extremity Lower without Contra [facility] Imaging Services [address] [place], [place] [address] Extremity Lower without Contra MR#: [id number] Acct: [id number] Name: DARLING BENNETT Rep #: [id number] : 1960 M 64 From: Joby Ma DO PCP: Dr. Hector Luevano MD Status: REG ER Study: Extremity Lower without Contra Date of Exam: 06/23/24 Exam# [id number] Ordering Dr: Mt Vela MD PROCEDURE: EXTREMITY [...] IMPRESSION: Complex os calcis fracture. Reading Location: [facility] CC: Dr. Hector Luevano MD; Dr. Mt Vela MD Manager Applied: Signed Normal [facility] AAA Screeningon 06-29-2024 AAA Screening [facility] Cardiovascular [place] [address] AAA Screening 06/29/24820 MR#: [id number] Acct: [id number] Name: DARLING BENNETT Rep #: [id number] : 1960 63 From: Kyle Harvey MD Attending Dr: Dr. Alberto Germain MD Status: REG CLI Ordering Dr: Alberto Germain MD Date: 06/29/24 Location: [facility] Sex: M C Admitted: Reason For Study: CAD in [place] Artery Aorta Measurements Aorta Doppler Measurements Proximal [...] MD Date Dictated: 06/29/24820 Date Transcribed: 06/29/241741 Manager Applied: Signed Normal [facility] No Panel InformationOrdered By: Hannah Patel on 05-19-2023 Troponin I High Sensitivity 10 pg/mL 3.0-78.0 [facility] Comment on above: Please Note: New Heydi t Units and Gender Specific Reference Ranges. For more information see Policy Stat Procedure Goodman High Sensitivity Troponin (TNIH) and attachments. Absolute lymphocyte countOrd ered By: Hannah Patel on 05-18-2023 Lymphocytes Auto (Unsp spec) [#/Vol] 3.92 10*3/uL 0.83-4.51 [facility] Basophil percentageOrdered B y: Hannah Patel on 05-18-2023 Basophils/100 WBC (Bld) 0.3 % 0-1 [facility] Chloride [Moles/Vol] 106 mmol/L 98-107 [facility] Eosinophils/100 WBC (Bld) 1.5 % 0-5 [facility] Glucose [Mass/Vol] 103 mg/dL 74-106 [facility] Comment on above: Fasting Glucose resu lt from 100 to 125 mg/dL suggests IMPAIRED HOMEOSTASIS per A.D.A. criteria. Neutrophils (Bld) [#/Vol] 5.1 10*3/uL 2.0-7.7 [facility] Neutrophils/100 WBC (Bld) 50.4 % 47-70 [facility] Potassium [Moles/Vol] 3.6 mmol/L 3.5-5.[address] [facility] Sodium [Moles/Vol] 139 mmol/L 136-145 [facility] WBC (Bld) [#/Vol] 10.1 10*3/uL 4.4-11.0 [facility] Blood erythrocytes count (nu mber/volume)Ordered By: Hannah Patel on 05-18-2023 RBC (Bld) [#/Vol] 4.93 10*6/uL 4.6-6.2 [facility] Blood hemoglobin measurement (mass/volume)Ordered By: Hannah Patel on 05-18-2023 Hemoglobin (Bld) [Mass/Vol] 14.5 g/dL 13.0-16.5 [facility] Blood lymphocytes/100 leukoc ytesOrdered By: Hannah Patel on 05-18-2023 Lymphocytes/100 WBC (Bld) 38.8 % 19-41 [facility] Blood monocytes/100 leukocyt esOrdered By: Hannah Patel on 05-18-2023 Monocytes/100 WBC (Bld) 8.7 % 0-10 [facility] Blood platelet mean volumeOr dered By: Hannah Patel on 05-18-2023 Platelet mean volume (Bld) [Entitic vol] 8.9 fL 6.2-12.0 [facility] Determination of erythrocyte mean corpuscular volume (MCV)Ordered By: Hannah Patel on 05-18-2023 MCV (RBC) [Entitic vol] 92.1 fL 80-94 [facility] Hematocrit Auto (Bld) [Volum e fraction]Ordered By: Hannah Patel on 05-18-2023 Hematocrit (Bld) [Volume fraction] 45.4 % 40-54 [facility] - Chemistry and C hemistry - challengeOrdered By: Hannah Patel on 05-18-2023 CO2 [Moles/Vol] 30.0 mmol/L 21.0-32.0 [facility] Urea nitrogen/Creatinine [Mass ratio] 20.5 mg/mg 10-20 [facility] - Hematology and Cell countsOrdered By: Hannah Patel on 05-18-2023 Erythrocyte distribution width (RBC) [Entitic vol] 45.8 fL 35.1-43.9 [facility] Erythrocyte distribution width (RBC) [Ratio] 13.2 % 11.6-14.6 [facility] Immature granulocytes/100 WBC (Bld) 0.300 % 0.0-0.9 [facility] Comment on above: IG% - Immature Granu locytes (promyelocytes, myelocytes and metamyelocytes) > 1% indicates that a LEFT SHIFT is Present. MCH (RBC) [Entitic mass] 29.4 pg 27.0-32.0 [facility] Nucleated RBC/100 WBC (Bld) [Ratio] 0 % 0-5 [facility] MCHC Auto (RBC) [Mass/Vol]Or dered By: Hannah Patel on 05-18-2023 MCHC (RBC) [Mass/Vol] 31.9 g/dL 32-[address] [facility] No Panel InformationOrdered By: Hannah Patel on 05-18-2023 Estimated Creatinine Clearance Calc 91.01 ml/min [facility] Estimated GFR (MDRD) Amer 99 mL/min >60 [facility] Comment on above: GFR Calc Estimated GFR (MDRD) Non-Af Amer 82 mL/min >60 [facility] Comment on above: Non- GFR Calc Platelets bldOrdered By: Annie Patel on 05-18-2023 Platelets (Bld) [#/Vol] 333 10*3/uL 150-450 [facility] Serum or plasma calcium judy urement (mass/volume)Ordered By: Hannah Patel on 05-18-2023 Calcium [Mass/Vol] 9.3 mg/dL 8.5-10.1 [facility] Serum or plasma creatinine m easurement (mass/volume)Ordered By: Hannah Patel on 05-18-2023 Creatinine [Mass/Vol] 0.98 mg/dL 0.70-1.[address] [facility] Comment on above: The validity of the calculated GFR & GFRAA in patients over 70 years has not been determined. Clinical correlation is essential. Serum or plasma urea nitroge n measurement (mass/volume)Ordered By: Hannah Patel on 05-18-2023 Urea nitrogen [Mass/Vol] 20 mg/dL 7-18 [facility] Thin prep Papanicolaou smear with manual screeningOrdered By: Hannah Patel on 05-18-2023 Thin prep Papanicolaou smear with manual screening 3 5-15 [facility] Basophil percentageon 2022 Cholesterol [Mass/Vol] 142 mg/dL <200 [facility] Comment on above: <200 mg/dL Desirable 200-240 mg/dL Borderline >240 mg/dL High Risk Triglyceride [Mass/Vol] 69 mg/dL <199 [facility] Comment on above: The drugs N-Acetylcy steine and Metamizole may falsely depress this assay.Serum Triglycerides Reference Interval Normal <150 mg/dL Borderline high 150 - 199 mg/dL High 200 - 499 mg/dL Very High > or = 500 mg/dL No Panel Informationon 10-13 Thyroid Stimulating Hormone (TSH) 1.49 uIU/mL 0.358-3.74 [facility] Serum or plasma cholesterol in HDL measurement (mass/volume)on 10-13-2022 Cholesterol in HDL [Mass/Vol] 60 mg/dL >40 [facility] Comment on above: The drugs N-Acetylcy steine and Metamizole may falsely depress this assay. Reference Range HDL <40 mg/dL Low HDL Cholesterol HDL >or= 60 mg/dL High HDL Cholesterol Serum or plasma cholesterol in VLDL measurement (mass/volume)on 10-13-2022 Cholesterol in VLDL [Mass/Vol] 14 mg/dL 5-40 [facility] Serum or plasma low density lipoprotein (LDL) cholesterol measurement (mass/volume)on 10-13-2022 Cholesterol in LDL [Mass/Vol] 68 mg/dL 0-130 [facility] No Panel Informationon 05-01 Troponin I High Sensitivity 11 pg/mL 3.0-78.0 [facility] Work Phone: Comment on above: Please Note: New Heydi t Units and Gender Specific Reference Ranges. For more information see Policy Stat Procedure [facility] High Sensitivity Troponin (TNIH) and attachments. Absolute lymphocyte counton 04-30-2022 Lymphocytes Auto (Unsp spec) [#/Vol] 3.87 10*3/uL 0.83-4.51 [facility] Work Phone: Basophil percentageon 2021 Basophils/100 WBC (Bld) 0.4 % 0-1 [facility] Work Phone: Chloride [Moles/Vol] 107 mmol/L 98-107 [facility] Work Phone: [phone] Eosinophils/100 WBC (Bld) 1.5 % 0-5 [facility] Work Phone: Glucose [Mass/Vol] 118 mg/dL 74-106 [facility] Work Phone: [phone] Comment on above: Fasting Glucose resu lt from 100 to 125 mg/dL suggests IMPAIRED HOMEOSTASIS per A.D.A. criteria. Neutrophils (Bld) [#/Vol] 5.2 10*3/uL 2.0-7.7 [facility] Work Phone: Neutrophils/100 WBC (Bld) 51.1 % 47-70 [facility] Work Phone: Potassium [Moles/Vol] 3.6 mmol/L 3.5-5.[address] [facility] Work Phone: Sodium [Moles/Vol] 139 mmol/L 136-145 [facility] Work Phone: WBC (Bld) [#/Vol] 10.2 10*3/uL 4.4-11.0 [facility] Work Phone: Blood erythrocytes count (nu mber/volume)on 04-30-2022 RBC (Bld) [#/Vol] 4.89 10*6/uL 4.6-6.2 [facility] Work Phone: [phone] Blood hemoglobin measurement (mass/volume)on 04-30-2022 Hemoglobin (Bld) [Mass/Vol] 15.1 g/dL 13.0-16.5 [facility] [facility] Work Phone: [phone] Blood lymphocytes/100 leukoc yteson 04-30-2022 Lymphocytes/100 WBC (Bld) 38.1 % 19-41 [facility] Work Phone: [phone] Blood monocytes/100 leukocyt eson 04-30-2022 Monocytes/100 WBC (Bld) 8.8 % 0-10 [facility] Work Phone: Blood platelet mean volumeon 04-30-2022 Platelet mean volume (Bld) [Entitic vol] 8.8 fL 6.2-12.0 [facility] Work Phone: Determination of erythrocyte mean corpuscular volume (MCV)on 04-30-2022 MCV (RBC) [Entitic vol] 91.0 fL 80-94 [facility] Work Phone: Hematocrit Auto (Bld) [Volum e fraction]on 04-30-2022 Hematocrit (Bld) [Volume fraction] 44.5 % 40-54 [facility] Work Phone: Laboratory - Chemistry and C hemistry - challengeon 04-30-2022 CO2 [Moles/Vol] 28.0 mmol/L 21.0-32.0 [facility] Work Phone: Urea nitrogen/Creatinine [Mass ratio] 17.7 mg/mg 10-20 [facility] Work Phone: Laboratory - Hematology and Cell countson 04-30-2022 Erythrocyte distribution width (RBC) [Entitic vol] 41.8 fL 35.1-43.9 [facility] Work Phone: Erythrocyte distribution width (RBC) [Ratio] 12.7 % 11.6-14.6 [facility] Work Phone: Immature granulocytes/100 WBC (Bld) 0.100 % 0.0-0.9 [facility] Work Phone: Comment on above: IG% - Immature Granu locytes (promyelocytes, myelocytes and metamyelocytes) > 1% indicates that a LEFT SHIFT is Present. MCH (RBC) [Entitic mass] 30.9 pg 27.0-32.0 [facility] Work Phone: Nucleated RBC/100 WBC (Bld) [Ratio] 0 % 0-5 [facility] Work Phone: MCHC Auto (RBC) [Mass/Vol]on 04-30-2022 MCHC (RBC) [Mass/Vol] 33.9 g/dL 32-[address] [facility] Work Phone: No Panel Informationon 04-30 Estimated Creatinine Clearance Calc 94.13 ml/min [facility] Work Phone: Estimated GFR (MDRD) Amer 101 mL/min >60 [facility] Work Phone: Comment on above: GFR Calc Estimated GFR (MDRD) Non-Af Amer 84 mL/min >60 [facility] Work Phone: Comment on above: Non- GFR Calc Platelets bldon 04-30-2022 Platelets (Bld) [#/Vol] 318 10*3/uL 150-450 [facility] Work Phone: Serum or plasma calcium judy urement (mass/volume)on 04-30-2022 Calcium [Mass/Vol] 9.2 mg/dL 8.5-10.1 [facility] Work Phone: Serum or plasma creatinine m easurement (mass/volume)on 04-30-2022 Creatinine [Mass/Vol] 0.96 mg/dL 0.70-1.[address] [facility] Work Phone: Comment on above: The validity of the calculated GFR & GFRAA in patients over 70 years has not been determined. Clinical correlation is essential. Serum or plasma urea nitroge n measurement (mass/volume)on 04-30-2022 Urea nitrogen [Mass/Vol] 17 mg/dL 7-18 [facility] Work Phone: Thin prep Papanicolaou smear with manual screeningon 04-30-2022 Thin prep Papanicolaou smear with manual screening 4 5-15 [facility] Work Phone: Basophil percentageon 2021 Cholesterol [Mass/Vol] 135 mg/dL <200 [facility] Work Phone: Comment on above: <200 mg/dL Desirable 200-240 mg/dL Borderline >240 mg/dL High Risk Triglyceride [Mass/Vol] 68 mg/dL [facility] Work Phone: Comment on above: The drugs N-Acetylcy steine and Metamizole may falsely depress this assay.Serum Triglycerides Reference Interval Normal <150 mg/dL Borderline high 150 - 199 mg/dL High 200 - 499 mg/dL Very High > or = 500 mg/dL No Panel Informationon 07-27 Prostate Specific Antigen Screen 1.59 ng/mL 0.00-4.00 [facility] Work Phone: Comment on above: This test was perfor med using the TPSA assay method for [employer] chemistry system. Values obtained with differentassay methods cannot be used interchangably.When changing PSA assays in the course of monitoring apatient, additional sequential testing should be carriedout to confirm baseline values. Serum or plasma cholesterol in HDL measurement (mass/volume)on 07-27-2021 Cholesterol in HDL [Mass/Vol] 59 mg/dL [facility] Work Phone: Comment on above: The drugs N-Acetylcy steine and Metamizole may falsely depress this assay. Reference Range HDL <40 mg/dL Low HDL Cholesterol HDL >or= 60 mg/dL High HDL Cholesterol Serum or plasma cholesterol in VLDL measurement (mass/volume)on 07-27-2021 Cholesterol in VLDL [Mass/Vol] 14 mg/dL 5-40 [facility] Work Phone: Serum or plasma low density lipoprotein (LDL) cholesterol measurement (mass/volume)on 07-27-2021 Cholesterol in LDL [Mass/Vol] 62 mg/dL 0-130 [facility] Work Phone: Vital Signs Date Time Vital Sign Value Performing Clinician Ernie sanford 05-19-2023 02:44-0500 Diastolic blood pressure 71 mm[Hg] [facility] 05-19-2023 02:44-0500 Heart rate 65 /min [facility] 05-19-2023 02:44-0500 Respiratory rate 18 /min [facility] 05-19-2023 02:44-0500 SaO2% (BldA) [Mass fraction] 96 % [facility] 05-19-2023 02:44-0500 Systolic blood pressure 122 mm[Hg] [facility] 05-18-2023 23:45-0500 Body height 190.5 cm [facility] 05-18-2023 23:45-0500 Body mass index (BMI) [Ratio] 31.4 kg/m2 [facility] 05-18-2023 23:45-0500 Body temperature 97.4 [degF] [facility] 05-18-2023 23:45-0500 Body weight 114 kg [facility] 05-01-2022 02:15-0500 Diastolic blood pressure 79 mm[Hg] [facility] Work Phone: 05-01-2022 02:15-0500 Heart rate 54 /min [facility] Work Phone: 05-01-2022 02:15-0500 Respiratory rate 16 /min [facility] Work Phone: 05-01-2022 02:15-0500 SaO2% (BldA) [Mass fraction] 95 % [facility] Work Phone: 05-01-2022 02:15-0500 Systolic blood pressure 144 mm[Hg] [facility] Work Phone: 04-30-2022 23:23-0500 Body height 190.5 cm [facility] Work Phone: 04-30-2022 23:23-0500 Body mass index (BMI) [Ratio] 30.8 kg/m2 [facility] Work Phone: 04-30-2022 23:23-0500 Body temperature 98.2 [degF] [facility] Work Phone: 04-30-2022 23:23-0500 Body weight 112 kg [facility] Work Phone: Encounters Encounter Date Encounter Type Care Provider Facility Start: 05-12-2025 ambulatory Hector Luevano Facility:[facility] Start: 05-01-2025 End: 05-01-2025 ambulatory Hector Luevano Facility:[facility] Start: 04-23-2025 End: 04-23-2025 Emergency department patient visit Hector Luevano Facility:[facility] Start: 06-29-2024 End: 06-29-2024 ambulatory Alberto Germain Facility:[facility] Start: 05-18-2023 End: 05-19-2023 Emergency department patient visit [facility] Work Phone: Start: 10-13-2022 End: 10-13-2022 ambulatory [facility] Work Phone: Start: 10-13-2022 End: 10-13-2022 Patient encounter procedure [facility] Start: 04-30-2022 End: 05-01-2022 Emergency department patient visit [facility] Start: 07-27-2021 End: 07-27-2021 Patient encounter procedure [facility] Procedures Date Procedure Procedure Detail Performing Clinician Start: 05-18-2023 Plain chest X-ray Start: 04-30-2022 Plain chest X-ray Plan of Treatment Date Care Activity Detail Author Start: 05-19-2023 [facility] Start: 05-18-2023 [facility] Start: 04-30-2022 [facility] Work Phone: Patient Education ED Chest Pain, Uncertain Cause [facility] Work Phone: Patient referral [facility] Work Phone: Immunizations Immunization Date Immunization Notes Care Provider Fa cility 03-07-2019 tetanus toxoid, redu miguel diphtheria toxoid, and acellular pertussis vaccine, adsorbed [facility] 03-22-2016 Influenza virus vaccine [facility] Payers Date Payer Category Payer Unknown [id number] 2024 Self-pay [id number] 2024 Medicare [id number] 2024 Unknown [id number] 2016 Private Health Insurance [facility] [id number] Unknown [id number] Unknown [id number] Unknown [id number] Unknown [id number] Unknown [id number] 62 Unknown [id number] Social History Date Type Detail Facility Start: 10-13-2020 End: 05-18-2023 Tobacco smoking status AZIS Unknown if ever smoked [facility] Start: 03-07-2019 Cigars [facility] Start: 1960 Sex Assigned At Male [facility] Mental Status Date Assessment Result Facility 05-18-2023 Cognitive function Voice/Name [facility] Work Phone: 04-30-2022 Cognitive function Voice/Name [facility] Work Phone: Evaluation note Note Date & Type Note Facility Evaluation note No assessment information availa ble [facility] Work Phone: Advance Directives No Advanced Directives Records Found Advance Directive Response Recorded Date/ Time Living Will No October 13, 2020 12:14am Power of Workers Compensation Legal Secretary No October 13 12:14am Advance Directive Response Recorded Date/ Time Living Will No April 30 11:25pm Power of Workers Compensation Legal Secretary No April 30, 2022 11:25pm Advance Directive Response Recorded Date/ Time Living Will No May 01, 2 022 12:25am Power of Workers Compensation Legal Secretary No May 01, 2022 12:25am Advance Directive Response Recorded Date/ Time Living Will No May 18 023 11:54pm Power of Workers Compensation Legal Secretary No May 18, 2023 11:54pm Chief Complaint [...] KATIE ROGEL Attending Provider, Referring Provider Ac nishi Team Status: Inactive Member Role Status Dates Dr. Hector Luevano MD Primary Care Provider Active Dr. Hannah Patel MD Emergency Provider Active (unrecognized sect ion and content) No Status Records Found INFORMATION SOURCE (unrecogn ized section and content) DATE CREATED AUTHOR 05/04/2025 [facility] FOR RECORDS PERTAINING TO PATIENTS WHO ARE [...] BE BASED ON THE PRIMARY CLINICAL RECORDS. [facility] [employer] provides no warranty or guarantee of the accuracy or completeness of information in this document.
--- NOTE | 2025-05-12 12:59 | OP.PCM_ITS ---
Operative Report (Standard) Operative Information Date of Procedure: 05/12/25 Pre-Operative Diagnosis: 1. Calcaneal fracture, right lower extremity Post-Operative Diagnosis: Same as preoperative diagnosis Surgery/Procedure Performed: Procedure #1: Application of external fixator, right lower extremity medical technologist prn: Yes Mowing Machine Operator: Gilmer Palafox PGY2 Tasks completed by regulatory assistant: Implanting device Additional unit assistant?: No Type of Anesthesia: General/Regional RN Documented Start/Stop Times: Operation Date: 05/12/25 14:50 Case Time Into Pre-Op 05/12/25 13:03 Anesthesia Start 05/12/25 16:08 Into Room 05/12/25 16:08 Procedure Start 05/12/25 16:25 Procedure End 05/12/25 17:15 Anesthesia End 05/12/25 17:25 Into Recovery 05/12/25 17:25 Out of Room 05/12/25 17:25 Into Phase II Recovery 05/12/25 18:03 Out of Recovery 05/12/25 18:03 Out of Phase II 05/12/25 18:47 Procedure Start Time: 16:25 Procedure Stop Time: 17:15 Select all DRAINS/GRAFTS/IMPLANTS that apply: Implanted device Implanted device details: Arthrex delta frame, right lower extremity Special Medications: For anesthesia Estimated Blood Loss: 5 mL Fluids Replaced: For anesthesia Specimen collected: No Description of surgery: Indications For Operation: Mr. Eddy is a 64-year-old male who was admitted to [facility] for application of X dermal fixator/delta frame to the right lower extremity after sustaining a fall from 8 feet resulting in a comminuted calcaneal fracture. Patient is a 67-year-old femalePatient was sent to the office after a calcaneal fracture on 04/23/2025 after falling from a ladder. I was not on-call at the time and the patient was referred to my office for continued care and treatment. Prior to the patient's arrival there showed evidence of a comminuted fracture in approximately 3-4 location as well as at the constant fragment of the right lower extremity and confirmed on CT scan. With the patient arrived to the office we did a partial weightbearing Calc axial radiograph that showed a varus deformity of the tuber. I discussed with the patient that that would need to be placed in a more varus position or we will be having to reconstruct the tuber at her later date due to the comminution. I did discuss further in great detail that I cannot move forward with reconstruction of the comminuted calcaneus due to the swelling and fracture blisters but I could go forward with a external fixator/delta frame percutaneously to get the varus tuber back to rectus position. I discussed in great detail risk and benefits which he is understanding of. He elected to move forward with the procedure. Chart reviewed consent signed. Due to varus deformity of the calcaneal fracture was deemed necessary at this time to take the patient the operating room to place a delta frame on the right lower extremity to get the calcaneal tuber rotated out of varus. The nature of the problem, anticipated procedures, postop recovery/convalences and risk/complications include but not limited to infection, wound healing complications, digital amputation, hypertrophic scarring, numbness, tingling, chronic pain, CRPS, over and under correction, recurrence of deformity, DVT and or PE and the need for further surgery have been discussed in great detail with the patient. All questions have been answered to the patient's satisfaction. There are no guarantees given as to the outcome of the procedure. Description of Procedure: Under mild sedation, the patient was brought into the operating room and placed on the operating table in supine position. Once the patient was under general anesthesia with laryngeal mask airway, the right lower extremity was blocked prior to the procedure in the PACU by anesthesia popliteal and adductor block. Please see anesthesia notes for further detail. Next, a well-padded thigh tourniquet was applied to the right lower extremity. Next, the right lower extremity was prepped and draped in normal aseptic manner. Next, a timeout was then undertaken verifying the correct patient, extremity, visibility of preoper ative markings, availability of the equipment. Next, attention was directed to the right lower extremity. Using a foreign Esmarch, right lower extremity was exsanguinated and elevated to 60 degrees for 1 minute. Procedure #1: Application of external fixator, right lower extremity (CPT code: 08333) Next, attention was directed to the right lower extremity calcaneal fracture. Using a large C-arm fluoroscopy the calcaneal axial view was obtained and showed a varus deformity of the calcaneal tuber. Next, attention was directed to the proximal tibia and into half pins were placed 15 cm proximal from the ankle joint using the parallel guide and drill. The half pins were secured in place with 2 threads out the posterior aspect of the calcaneus with care not to vitalized deep tissue structures. Next, the transfixation pin was placed perpendicular to the calcaneus under large-scale fluoroscopy guidance. The foot was secured and under live C-arm fluoroscopy the tuber was allowed to be ad justed and moved from a varus to rectus position. After this was performed the pin to bar external fixator was constructed in a frame was also applied to allow better integrity to the external fixator. The equinus pin was placed in the first metatarsal securing the foot at 90 degrees with and pinned it to the external fixator. The application of the external fixator was performed with the rep in the room per the correction warden's recommendation. At this time the thigh tourniquet was deflated and all bleeders were cauterized and ligated necessary. Some of the larger stab incisions to the proximal external fixator were reapproximated and secured with 3-0 nylon in horizontal mattress suture technique. Jumpstart discs and holders were placed around all pins throughout the external fixator followed by 4 x 4's, conformer and a single layer Casas compression bandage was donned using 3 inch Felix bandage to the right lower extremity. The patient tolerated the procedure and anesthesia well and apparent satisfactory condition and was transported to the PACU for further monitoring prior to discharge home. Vital signs stable and vascular status intact to all digits bilateral. Post Operative Plan: Weightbearing: Nonweightbearing to right extremity. Full weightbearing to left extremity. Antibiotics: 2 g Ancef through the IV DVT Prophylaxis: 81 mg aspirin [place]: None Dressing: Jumpstart distal to all pin sites, dry sterile dressing single-layer Casas compression bandage, right lower extremity X-Rays: Post-operative films taken on the operating room. Pain Medication: Oxycodone 5 mg, cyclobenzaprine 10 mg, Tylenol 650 mg Follow-up: Patient will follow-up at scheduled postop appointment. Surgical Findings: 1. Successful derotation of the calcaneal tuber from varus to rectus. 2. Successful application of delta frame to the right lower extremity. Complications Complications: No Admit VTE Documentation VTE Present on Admission: No VTE Mechan Device Prophylaxis: SCD's VTE Pharm Prophylaxis ordered?: Yes
[2025-05-12] MEDS: Magnesium 1 GM over 15 mins IV (13:18)
[2025-05-12] MEDS: Lactated Ringers 1,000 ML 15 ML IV (13:18)
[2025-05-12] MEDS: fentaNYL 100 MCG/2 ML Ampul IV (15:50)
[2025-05-12] MEDS: Midazolam 2 MG/2 ML Syringe IV (15:50)
[2025-05-12] MEDS: Cefazolin 1 GM/5 ML Vial 2 GM IV (16:10)
[2025-05-12] MEDS: Lidocaine 1% (5 ml sdv) 5 ML Vial IV (16:14)
--- NOTE | 2025-05-12 16:15 | RAD_ITS ---
PROCEDURE: FOOT 2 VIEWS 05/12/2025 REASON FOR EXAM: CALCANEAL FX TECHNIQUE: Procedure Code: RADFO2 Modality: DX Procedure: FOOT 2 VIEWS Intraoperative radiographs. Number of images: 7. Total fluoro time 128 seconds. Cumulative dose: 5.07 mGy. COMPARISON: Available priors FINDINGS: Multiple images obtained via C-arm following open reduction internal fixation. Images demonstrate placement of screws through the 1st metatarsal calcaneus and distal tibia RAD/Foot 2 Views IMPRESSION: The intraoperative radiographs following reduction of calcaneal fracture Reading Location: [id number]
[2025-05-12] MEDS: Lactated Ringers 1,000 ML 1000 ML IV (16:55)
--- NOTE | 2025-05-12 17:29 | PCM.POST.ANE ---
Anesthesia: Postop Eval I Current Vital Signs Temperature: 97.4 F Pulse Rate: 58 Blood Pressure: 156/85 Respiratory Rate: 12 Pulse Ox: 100 Oxygen Delivery Method: Nasal Cannula Oxygen Flow Rate (L/min): 2 Assessment Airway patent: Yes Spontaneous unlabored respirations: Yes Mental status: Awake and Calm nausea: No Vomiting: No Anesthesia Complication: No Fluid Hydration Crystalloid volume administer (ml): 1,000 Total IV fluid infused: 1,000 Progress Note Anesthesia document: Postop Eval 1 completed: Yes
--- NOTE | 2025-05-12 17:41 | POSTOPAN2_ITS ---
Anesthesia Postop Eval I Sum Postop Eval Completion status Anesthesia document: Postop Eval 1 completed: Yes Anesthesia Postop Eval I Summary Anesthesia Postop Eval I Summary: Anesthesia Postop Eval I: Assessment Summary Airway patent Yes 05/12/25 17:30 PROTOTYPE SPECIAL BUILD.SHOF Spontaneous unlabored Yes 05/12/25 17:30 PROTOTYPE SPECIAL BUILD.SHOF respirations Mental status Awake,Calm 05/12/25 17:30 PROTOTYPE SPECIAL BUILD.SHOF nausea No 05/12/25 17:30 PROTOTYPE SPECIAL BUILD.SHOF Vomiting No 05/12/25 17:30 PROTOTYPE SPECIAL BUILD.SHOF Anesthesia Postop Eval I: Fluid Summary Crystalloid volume administer 1,000 05/12/25 17:30 PROTOTYPE SPECIAL BUILD.SHOF (ml) Colloids volume administered ( ml) Blood Product volume administered (ml) Total IV fluid infused 1,000 05/12/25 17:30 PROTOTYPE SPECIAL BUILD.SHOF Anesthesia Postop Eval I: Summary Notes Anesthesia Complication No 05/12/25 17:30 PROTOTYPE SPECIAL BUILD.SHOF Anesthesia Complication Comment: Post-operative progress note Anesthesia: Postop Eval II Evaluation Mental status: Awake Pain Level: 1 nausea: No Vomiting: No
--- NOTE | 2025-05-12 17:41 | PCM.POSTANE2 ---
Anesthesia Postop Eval I Sum Postop Eval Completion status Anesthesia document: Postop Eval 1 completed: Yes Anesthesia Postop Eval I Summary Anesthesia Postop Eval I Summary: Anesthesia Postop Eval I: Assessment Summary Airway patent Yes 05/12/25 17:30 MUD [email or web address] Spontaneous unlabored Yes 05/12/25 17:30 MUD [email or web address] respirations Mental status Awake,Calm 05/12/25 17:30 MUD [email or web address] nausea No 05/12/25 17:30 MUD [email or web address].SHOF Vomiting No 05/12/25 17:30 MUD [email or web address].SHOF Anesthesia Postop Eval I: Fluid Summary Crystalloid volume administer 1,000 05/12/25 17:30 MUD [email or web address].SHOF (ml) Colloids volume administered ( ml) Blood Product volume administered (ml) Total IV fluid infused 1,000 05/12/25 17:30 MUD [email or web address].SHOF Anesthesia Postop Eval I: Summary Notes Anesthesia Complication No 05/12/25 17:30 MUD [email or web address].SHOF Anesthesia Complication Comment: Post-operative progress note Anesthesia: Postop Eval II Evaluation Mental status: Awake Pain Level: 1 nausea: No Vomiting: No
== END 2025-05-12 18:48 | disposition home or self-care (01) ==
LOC: SDC 12:37 → AC 12:37
PROVIDERS: PCP Family Medicine; Referring Provider Podiatrist Foot & Ankle Surgery; Visit Provider Podiatrist Foot & Ankle Surgery
PROC: (CPT 20692; principal; 2025-05-12 14:35)
DX: S92.001A Unspecified fracture of right calcaneus, initial encounter for closed fracture (principal); Z79.891 Long term (current) use of opiate analgesic; Z87.891 Personal history of nicotine dependence; W11.XXXA Fall on and from ladder, initial encounter
CPT/HCPCS: 20692; 01480; 36415; 73620; 76000; 82962; 83735; 87077; 87081; C1713; J2405; J3475

== ENCOUNTER → 2025-06-05 | Outpatient (CLI) | payer MEDICARE, OTHER, SELFPAY ==
[2025-06-05 17:31] LABS: Hematocrit 44.2 % (40-54); Hemoglobin 14.9 g/dL (13.0-16.5); Immature Granulocytes Count 0.010 X10^3/uL (0.0-0.0); Mean Corp Hgb Conc 33.7 g/dL (32-36); Mean Corpuscular Volume 90.2 fL (80-94); Mean Platelet Vol. 8.9 fl (6.2-12.0); NRBC Flagged by Analyzer 0 % (0-5); Platelet Count 377 K/mm3 (150-450); RBC Distribution Width CV 12.7 % (11.6-14.6); RBC Distribution Width SD 42.3 fl (35.1-43.9); Red Blood Count 4.90 M/mm3 (4.6-6.2); White Blood Count 8.3 K/mm3 (4.4-11.0)
[2025-06-05 18:50] LABS: AST(SGOT) 24 U/L (<=37); Alanine Aminotransfer ALT/SGPT 23 U/L (<=46); Albumin, Serum 4.4 g/dL (3.4-4.8); Alkaline Phosphatase 138 U/L (40-129); Anion Gap 11 (5-15); BUN 21 mg/dL (4-19); BUN/Creat Ratio 21.6 RATIO (10-20); Calcium,Total 10.1 mg/dL (7.6-11.0); Carbon Dioxide 22.8 mmol/L (21.0-32.0); Chloride 103 mmol/L (98-108); Globulin 3.0 g/dL (2.2-4.2); Glucose 110 mg/dL (70-99); Potassium 4.0 mmol/L (3.3-5.1); Vitamin D,25 Hydroxy 47.8 ng/mL (30-100)
== END | disposition home or self-care (01) ==
LOC: MTLAB 14:43
PROVIDERS: PCP Family Medicine; Referring Provider Family Medicine; Visit Provider Family Medicine
DX: I25.10 Atherosclerotic heart disease of native coronary artery without angina pectoris (principal); M19.90 Unspecified osteoarthritis, unspecified site; E55.9 Vitamin D deficiency, unspecified
CPT/HCPCS: 36415; 80053; 82306; 83036; 85025